=== PATIENT | female | born 1985 | race Caucasian/White ===

== ENCOUNTER → 2018-05-04 09:41 | Outpatient (CLI) | payer MEDICAID, SELFPAY ==
--- NOTE | 2018-05-04 09:47 | XR_ITS ---
XR ankle RT min 3V HISTORY: Pain following injury ITS.REASON: RT ANKLE INJURY ORDERING PHYSICIAN: Delisa Turner PATIENT AGE: 33 years COMPARISON: 09/14/2015 FINDINGS: There is a faint density at the tip of the lateral malleolus which may be due to an avulsion fracture. Mild soft tissue swelling noted at the lateral malleolus region. No other significant anomalies evident. IMPRESSION: Small avulsion fracture at the tip of the lateral malleolus
== END ==
PROVIDERS: PCP Nurse Practitioner Family; Visit Provider Nurse Practitioner Family
DX: S99.911A Unspecified injury of right ankle, initial encounter (principal)
CPT/HCPCS: 73610

== ENCOUNTER → 2020-05-24 10:07 | Outpatient (CLI) | payer OTHER, SELFPAY ==
--- NOTE | 2020-05-24 10:16 | US_ITS ---
PROCEDURE: US THYROID CLINICAL INDICATION: ADULT HYPOTHYROIDISM COMPARISON: No exams were available for comparison FINDINGS: Both thyroid glands are normal size and echogenicity. Right lobe: 21 millimeters x 43 mm x 32 millimeters, predominantly cystic lesion with a nodular component located within the the interpolar region measuring 21 millimeters x 31 millimeter x 19 millimeters. The left thyroid gland measures 30 millimeters x 42 mm X 17 mm and contains a hypervascular cystic/solid lesion, wider than tall well-defined borders and no microcalcifications. The isthmus measures 4.5 millimeters. IMPRESSION: Cystic right TR 1 lesion, solid left hypervascular lesion. 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 Biopsy recommended.. Dictated by: Shaan Forman 05/24/2020 12:01 Electronically signed by Shaan Forman in [place] 05/24/2020 12:01
== END ==
PROVIDERS: PCP Nurse Practitioner Family; Visit Provider Nurse Practitioner
DX: E03.9 Hypothyroidism, unspecified (principal)
CPT/HCPCS: 76536

== ENCOUNTER → 2020-07-03 10:59 | Outpatient (POV) | payer OTHER, SELFPAY | PROVIDERS: PCP Family Medicine; Visit Provider Otolaryngology | DX: Z00.00 Encounter for general adult medical examination without abnormal findings (principal) ==

== ENCOUNTER → 2020-08-07 09:35 | Outpatient (CLI) | payer OTHER, SELFPAY ==
--- NOTE | 2020-08-07 09:39 | US_ITS ---
PROCEDURE: US BIOPSY THYROID CLINICAL INDICATION: THYROID NODULE COMPARISON: US US THYROID from 05/24/2020 TECHNIQUE: Pre biopsy images performed. FNA was performed on the left of the solid nodule which was the most suspicious nodule. Following obtaining informed consent, using aseptic technique and local anesthesia with buffered lidocaine, fine-needle aspiration was performed of the nodule of interest using sonographic guidance. 3 passes were made into the nodule with a 25-gauge needle. Specimen was given to cytology. FINDINGS: CYTOLOGY: Negative for malignant cells IMPRESSION: FNA of the left thyroid dominant nodule is negative for malignant cells. The patient tolerated the procedure well without evidence of immediate complications and left the ultrasound suite in stable condition. Dictated by: Deng Marrero MD 08/08/2020 15:53 Deng Marrero MD in [place] 08/08/2020 15:53
== END ==
PROVIDERS: PCP Family Medicine; Visit Provider Otolaryngology
DX: E04.1 Nontoxic single thyroid nodule (principal)
CPT/HCPCS: 10005; 76942

== ENCOUNTER → 2020-08-20 11:36 | Outpatient (CLI) | payer OTHER, SELFPAY ==
--- NOTE | 2020-08-20 11:42 | XR_ITS ---
PROCEDURE: XR KNEE RT 3V CLINICAL INDICATION: KNEE EFFUSION, RIGHT, KNEE PAIN ACUTE COMPARISON: No exams were available for comparison FINDINGS: No fracture or dislocation. No lytic or blastic change. There is normal mineralization. The joint spaces are well-preserved. No significant degenerative/arthritic changes. No erosive changes evident. Other findings:Slight increased soft tissue density is present in the suprapatellar region suggesting small knee joint effusion. There is a faint lucency involving the distal shaft of the femur centrally at 3 mm and could be due to small cortical defect. IMPRESSION: Knee joint effusion with possible small cortical defect of the distal femur otherwise negative Dictated by: Deng Marrero MD 08/20/2020 13:13 Deng Marrero MD in [place] 08/20/2020 13:13
== END ==
PROVIDERS: PCP Nurse Practitioner; Visit Provider Nurse Practitioner
DX: M25.561 Pain in right knee (principal); M25.461 Effusion, right knee
CPT/HCPCS: 73562

== ENCOUNTER → 2020-12-07 07:37 | Outpatient (CLI) | payer OTHER, SELFPAY ==
--- NOTE | 2020-12-07 07:42 | MR_ITS ---
PROCEDURE: MR HEAD/BRAIN WO CON CLINICAL INDICATION: H/A S New onset headaches progressing COMPARISON: MR [facility] MRI-BRAIN W/WO from 04/01/2017 TECHNIQUE: Routine multiplanar multi echo sequences are performed without gadolinium enhancement. FINDINGS: No midline shift, mass effect, intracranial hemorrhage, hydrocephalus, or acute infarction is evident. The cerebellopontine angles, cerebellum, and brainstem have an unremarkable appearance. The hippocampal gyri and temporal horns are symmetric. The pituitary, optic chiasm, corpus callosum, and craniocervical junction have an unremarkable appearance. No mastoid effusion is evident. Lobular mucosal thickening involves the sphenoid sinus posteriorly on the left and anteriorly on the right also with mucosal thickening of the ethmoid sinuses. Retention cyst and or inflammatory thickening is considered. Mucous retention cyst involves the right maxillary sinus inferiorly. IMPRESSION: 1. No acute intracranial findings. 2. Paranasal sinus disease. Dictated by: Deng Marrero MD 12/08/2020 09:30 Deng Marrero MD in [place] 12/08/2020 09:30
== END ==
PROVIDERS: PCP Nurse Practitioner; Visit Provider Nurse Practitioner Family
DX: R51.9 Headache, unspecified (principal)
CPT/HCPCS: 70551

== ENCOUNTER 2023-03-03 18:55 | Emergency (ER) | payer OTHER, SELFPAY ==
[2023-03-03 18:57] VITALS: BP 123/79; PULSE 94; RESP 17; TEMP 36.8; O2SAT 97; BMI 25.9
--- NOTE | 2023-03-03 19:07 | HMH.EDGENADL ---
Discharge Plan Disposition Patient Disposition: Home, Self-Care Condition: Good Chief Complaint: Abdominal Pain Prescriptions Prescriptions: No Action trazodone 100 mg tablet 100 mg PO ONCE montelukast [Singulair] 10 mg tablet 10 mg PO QPM cetirizine [Zyrtec] 10 mg capsule 10 mg PO ONCE levothyroxine 25 mcg capsule 25 mcg PO ONCE Referrals Follow up/Referrals: Arely Delgado APRN [Primary Care Provider] - See instructions Clinical Impressions Clinical Impression: Esophageal obstruction due to food impaction Instructions Patient Instructions: DI for Acute Abdominal Pain, DI for Esophageal Dysphagia Print Language Print Language: Lao Discharge ED Provider: Tony Swift General Adult HPI General Chief complaint: Abdominal Pain Stated complaint: FB LODGE IN THROAT Time Seen by Provider: 03/03/23 19:41 History of Present Illness HPI narrative: Patient presents to the emergency department with abdominal pain and dysphagia. The patient states that she has trouble swallowing and got a piece of meat stuck during breakfast. She states that she is having trouble swallowing and is unable to tolerate liquids at this time. She states that she has had 2 scopes in the past which showed normal scopes but continues to have difficulty with swallowing. Related Data Home Medications Medication Instructions Recorded Confirmed cetirizine 10 mg capsule (Zyrtec) 10 mg PO ONCE 05/11/18 levothyroxine 25 mcg capsule 25 mcg PO ONCE 05/11/18 montelukast 10 mg tablet 10 mg PO QPM 05/11/18 (Singulair) trazodone 100 mg tablet 100 mg PO ONCE 05/11/18 Allergies Allergy/AdvReac Type Severity Reaction Status Date / Time No Known Allergies Allergy Unverified 05/11/18 15:56 [facility] Disclaimer: The information contained in this section may have been updated after the patient was seen, as this information can be updated by other users. Social History Smoking Status: Never smoker alcohol intake: never current occupational status: unemployed Travel in the last 8 weeks: None ROS Obtained: Yes All systems reviewed & no additional complaints except as documented Gastrointestinal Gastrointestingal: Reports other (Dysphagia, vomiting) Physical Exam General General appearance: alert and in no apparent distress Head Head exam: atraumatic and normocephalic Eye Eye exam: Present normal appearance, PERRL and EOMI Respiratory Respiratory exam: Present normal lung sounds bilaterally Cardiovascular Cardiovascular exam: Present regular rate, normal rhythm and normal heart sounds Abdominal Exam Abdominal exam: Present soft and other (No significant abdominal tenderness. No guarding. No rebound. Normal bowel sounds.) Extremities Exam Extremities exam: Present normal inspection and full ROM Neurological Exam Neurological exam: Present alert and oriented X3 Psychiatric Psychiatric exam: Present normal affect and normal mood Medical Decision Making Medical Records Medical records reviewed: Yes I reviewed the patient's medical records. Ramiro Inquiry Pt receiving controlled substance: No Vital Signs: 03/03/23 18:57 Temperature 98.2 F Temperature Source Oral Pulse Rate [Left] 94 H Respiratory Rate 17 Blood Pressure [Right Arm] 123/79 Blood Pressure Mean [Right Arm] 93 Blood Pressure Source [Right Arm] Automatic Cuff Blood Pressure Position [Right Arm] Sitting 02 Sat by Pulse Oximetry 97 Oxygen Delivery Method Room Air Orders (Tests/Meds): ED MEDICATIONS Discontinued Medications Generic Name Dose Route Start Last Admin Trade Name Freq PRN Reason Stop Dose Admin Belladonna Alkaloids 60 ml 03/03/23 19:06 03/03/23 19:13 Belladonna Alkaloids 60 Ml Ml PO 03/03/23 19:07 60 ml ONCE ONE Administration Glucagon 1 mg 03/03/23 19:06 03/03/23 19:13 Glucagon 1 Mg/Ml Vial IV 03/03/23 19:07 1
[2023-03-03 19:48] VITALS: BP 133/69; PULSE 72; RESP 17; TEMP 36.6; O2SAT 97
== END 2023-03-03 19:50 | disposition home or self-care (01) ==
PROVIDERS: Emergency Provider Emergency Medicine; PCP Nurse Practitioner
DX: K22.2 Esophageal obstruction (principal); T18.128A Food in esophagus causing other injury, initial encounter
CPT/HCPCS: 96374; 99283; 99284; J1610

== ENCOUNTER → 2023-06-30 15:11 | Outpatient (CLI) | payer OTHER, SELFPAY ==
--- NOTE | 2023-06-30 15:16 | XR_ITS ---
FINAL REPORT CLINICAL HISTORY: INJURY, ACUTE PAIN FINDINGS: RIGHT SHOULDER SERIES Three views of the right shoulder were obtained. There is no acute fracture or dislocation. The joint spaces are preserved. There is no soft tissue abnormality. IMPRESSION: No acute abnormality. Reviewed, Interpreted and Dictated by Keyon Beltran III, MD Transcribed by Driss Wise Authenticated and [facility]
== END ==
PROVIDERS: PCP Nurse Practitioner Family; Visit Provider Nurse Practitioner Family
DX: M25.511 Pain in right shoulder (principal); M25.611 Stiffness of right shoulder, not elsewhere classified; S49.91XA Unspecified injury of right shoulder and upper arm, initial encounter
CPT/HCPCS: 73030

== ENCOUNTER → 2023-07-13 13:18 | Outpatient (CLI) | payer OTHER, SELFPAY ==
--- NOTE | 2023-07-13 13:57 | MR_ITS ---
FINAL REPORT CLINICAL HISTORY: ACUTE PAIN OF RIGHT SHOULDER. PAIN WHEN RAISING ARM. WEAKNESS IN ARM. COMPARISON: None FINDINGS: Multiplanar MR imaging of the right shoulder was performed without contrast. There is moderate motion present slightly obscuring detail. Supraspinatus tendinosis is present. There is an intrasubstance tear of greater than 50% of the thickness of the supraspinatus tendon. There is mild degenerative change of the acromioclavicular joint. There is a small amount of fluid in the subacromial subdeltoid bursa. The glenoid labrum is obscured by motion. The long head of the biceps tendon is intact. A moderate glenohumeral joint effusion is seen. There is no evidence of fracture or dislocation. The musculature is intact. There is no evidence of soft tissue mass. IMPRESSION: Supraspinatus tendinosis with an intrasubstance tear greater than 50% of the thickness of the tendon. Labrum difficult to visualize secondary to motion. Mild acromioclavicular degenerative change with a small amount of fluid in the subacromial subdeltoid bursa, and a moderate glenohumeral joint effusion. Reviewed, Interpreted and Dictated by Keyon Beltran III, MD Transcribed by Josephine Quiroga Authenticated and [facility]
== END ==
PROVIDERS: PCP Nurse Practitioner Family; Visit Provider Nurse Practitioner Family
DX: M25.511 Pain in right shoulder (principal)
CPT/HCPCS: 73221

== ENCOUNTER 2023-07-26 05:19 | Emergency (ER) | payer OTHER, SELFPAY ==
[2023-07-26] VITALS (14 sets, daily range): BP systolic 97–150; BP diastolic 57–78; PULSE 41–58; RESP 13–20; TEMP 36.6; O2SAT 97–100; BMI 24.9
--- NOTE | 2023-07-26 05:37 | PC.NURSE ---
Dr. Way at
--- NOTE | 2023-07-26 05:41 | CT_ITS ---
PROCEDURE INFORMATION: Exam: CT Abdomen And Pelvis With Contrast Exam date and time: 07/26/2023 6:31 AM Age: 38 years old Clinical indication: Abdominal pain; Epigastric; Additional info: Epigastric/ruq abd pain, vomiting TECHNIQUE: Imaging protocol: Computed tomography of the abdomen and pelvis with contrast. Radiation optimization: All CT scans at this facility use at least one of these dose optimization techniques: automated exposure control; mA and/or kV adjustment per patient size (includes targeted exams where dose is matched to clinical indication); or iterative reconstruction. Contrast material: ISOVUE; Contrast volume: 75 ml; Contrast route: IV; REPORTING DATA: Count of CT and Cardiac NM exams in prior 12 months: This patient has received 0 known CTs and 0 known cardiac nuclear medicine studies in the 12 months prior to the current study. COMPARISON: No relevant prior studies available. FINDINGS: Liver: Normal. No mass. Gallbladder and bile ducts: The gallbladder is distended but no stones are seen. Questionable small amount of pericholecystic fluid. Pancreas: Normal. No ductal dilation. Spleen: Normal. No splenomegaly. Adrenal glands: Normal. No mass. Kidneys and ureters: Normal. No hydronephrosis. Stomach and bowel: Unremarkable. No obstruction. No mucosal thickening. Appendix: No evidence of appendicitis. Intraperitoneal space: Unremarkable. No free air. No significant fluid collection. Vasculature: Unremarkable. No abdominal aortic aneurysm. Lymph nodes: Unremarkable. No enlarged lymph nodes. Urinary bladder: Unremarkable as visualized. Reproductive: Uterus is retroflexed. Bones/joints: Prior thoracolumbar spine surgery. Soft tissues: Unremarkable. IMPRESSION: Hydropic gallbladder, no obvious stones are identified but a small amount of likely pericholecystic fluid is noted, consider right upper quadrant ultrasound for further evaluation.
--- NOTE | 2023-07-26 05:51 | ECG_ITS ---
APPROVED REPORT Exam: Resting ECG HR:46 bpm ECG Measurements Heart Rate 46 AXES NJ 167 P 64 QRSd 97 QRS 79 QT 487 T 70 QTc 447 Conclusion SINUS BRADYCARDIA POSSIBLE RIGHT VENTRICULAR CONDUCTION DELAY [RSR (QR) IN V1/V2] MODERATE ST DEPRESSION [0.05+ mV ST DEPRESSION] ABNORMAL ECG UNCONFIRMED REPORT Electronically signed by : Kurtis Pool MD 07/28/2023 17:25:13
--- NOTE | 2023-07-26 05:52 | HMH.EDGENADL ---
Discharge Plan Disposition Patient Disposition: Home, Self-Care Prescriptions Prescriptions: New potassium chloride 20 mEq tablet extended release 20 meq PO QID 3 Days Qty: 12 0RF ondansetron 4 mg tablet,disintegrating 4 mg PO Q6H PRN (Reason: nausea and vomiting) 5 Days Qty: 20 0RF No Action trazodone 100 mg tablet 100 mg PO ONCE montelukast [Singulair] 10 mg tablet 10 mg PO QPM cetirizine [Zyrtec] 10 mg capsule 10 mg PO ONCE levothyroxine 25 mcg capsule 25 mcg PO ONCE Referrals Follow up/Referrals: Delisa Turner APRN [Primary Care Provider] - See instructions Rafael Miranda MD [Staff Physician] - See instructions Activity Restrictions/Add. Instructions Additional Instructions/Restrictions: Your CT scan did not show any acute abnormalities but she did have a dilated gallbladder and some mild right upper quadrant tenderness. Your bedside ultrasound did not demonstrate any pericholecystic fluid or fluid surrounding the gallbladder and your exam improved significantly. Therefore we did not believe that your gallbladder needs to be emergently taken out however we recommend you follow-up with general surgeon to discuss an elective intervention if your symptoms continue. You have been given nausea medication and you had significant hypokalemia which is a low potassium secondary to nausea and vomiting. We discussed admission versus outpatient management and we opted to treat your potassium with oral supplementation. To ensure that you do not become hyperkalemic to essential that you have your potassium levels monitored by your primary care doctor. I would recommend you call first thing Thursday to get your potassium levels rechecked as you are replacing her potassium. Return with worsening symptoms or other concerns. Clinical Impressions Clinical Impression: Nausea and vomiting, Acute hypokalemia, Dilated gallbladder, Abdominal pain, epigastric Instructions Patient Instructions: DI for Acute Abdominal Pain Discharge ED Provider: Gopi Way General Adult HPI <Gopi Way MD - Last Filed: 07/26/23 23:32> General Chief complaint: Abdominal Pain Stated complaint: Vomiting,stomach pain Time Seen by Provider: 07/26/23 05:34 Mode of Arrival: Ambulatory Source of Information: Patient Limitations: No Limitations Description of Symptoms (Recalled from ER Triage Doc. by RN): Patient reports pain in upper gastric region that started around 1 am followed by 2 episodes of vomiting. Denies fever at this time. History of Present Illness HPI narrative: 38-year-old female history of prior esophageal stenosis status post stenting presents with acute onset epigastric abdominal pain with vomiting. Patient reports that she was in her normal state of health yesterday, awoke at 1 AM with severe epigastric abdominal pain and vomiting. Improved at home. Patient reports nothing like this has happened before. No history of abdominal surgery in the past, no history of pancreatitis. Patient is not a drinker. No recent fever or illness. Related Data Home Medications Medication Instructions Recorded Confirmed cetirizine 10 mg capsule (Zyrtec) 10 mg PO ONCE 05/11/18 levothyroxine 25 mcg capsule 25 mcg PO ONCE 05/11/18 montelukast 10 mg tablet 10 mg PO QPM 05/11/18 (Singulair) trazodone 100 mg tablet 100 mg PO ONCE 05/11/18 Previous Rx's Medication Instructions Recorded ondansetron 4 mg disintegrating 4 mg PO Q6H PRN nausea and 07/26/23 tablet vomiting 5 days #20 tabs potassium chloride 20 mEq 20 meq PO QID 3 days #12 tabs 07/26/23 tablet,extended release Allergies Allergy/AdvReac Type Severity Reaction Status Date / Time No Known Allergies Allergy Unverified 05/11/18 15:56 [facility] <Gopi Way MD - Last Filed: 07/26/23 23:32> [facility] Disclaimer: The information contained in this section may have been updated after the patient was seen, as this information can be update
[2023-07-26 05:56] LABS: Lactic Acid 1.4 mmol/L (0.7-2.1)
[2023-07-26 05:59] LABS: Basophils # 0.1 K/mm3 (0-0.2); Basophils % 0.6 % (0.1-2.0); Eosinophils # 0.5 K/mm3 (0.0-0.4); Eosinophils % 4.3 % (0.1-12.0); Hematocrit 41.9 % (37.0-47.0); Hemoglobin 14.2 g/dL (12.2-16.2); Lymphocytes % 17.7 % (10-50); Mean Corpuscular HGB Conc 33.8 g/dL (31.8-35.4); Mean Corpuscular Hemoglobin 30.1 pg (27.0-31.2); Mean Platelet Volume 9.9 fl (7.4-10.4); Monocytes # 0.5 K/mm3 (0.1-1.0); Monocytes % 4.3 % (1.7-9.3); Neutrophils # 8.2 K/mm3 (1.8-7.8); Neutrophils % 73.1 % (37.0-80.0); Platelet Count 279 K/mm3 (142-424); Red Blood Count 4.71 M/mm3 (4.20-5.40); Red Cell Distribution Width 13.2 % (11.5-17.5); White Blood Count 11.2 K/mm3 (4.8-10.8)
[2023-07-26 06:00] LABS: HCG Qualitative, Serum Negative (Negative)
[2023-07-26 06:06] LABS: Alanine Aminotransferase 54 U/L (12-78); Albumin/Globulin Ratio 1.3 (1.1-1.8); Alkaline Phosphatase 60 U/L (38-126); Anion Gap 12.8 mEq/L (5-15); Aspartate Amino Transferase 33 U/L (14-36); Bilirubin,Total 0.4 mg/dl (0.2-1.3); Blood Urea Nitrogen 11 mg/dl (7-17); Calcium 9.9 mg/dl (8.4-10.2); Carbon Dioxide 25 mmol/L (22.0-30.0); Chloride 106 mmol/L (98-107); Creatinine Clearance Estimated 112 mL/min (50-200); Estimated Glomerular Filt Rate 80 ml/min (>60); GFR (African American) 97 ML/MIN (>60); Globulin 3.2 g/dL (1.3-3.2); Glucose 174 mg/dl (74-100); Lipase 213 U/L (23-300); Sodium 141 mmol/L (136-145); Total Protein,Serum 7.2 g/dl (6.3-8.2)
[2023-07-26 06:07] LABS: Potassium 2.8 mmoL/L (3.5-5.1)
--- NOTE | 2023-07-26 06:08 | PC.NURSE ---
Critical lab K+ 2.[address]
[2023-07-26 06:13] LABS: Troponin I < 0.01 ng/ml (0.00-0.034)
--- NOTE | 2023-07-26 06:13 | PC.NURSE ---
Pt gone to RAD via wheelchair
[2023-07-26 06:41] LABS: Potassium 2.6 mmoL/L (3.5-5.1)
--- NOTE | 2023-07-26 06:41 | PC.NURSE ---
Reported critical potassium of 2.6 to
[2023-07-26 07:00] LABS: Magnesium 1.9 mg/dl (1.6-2.3)
--- NOTE | 2023-07-26 08:05 | PC.NURSE ---
pt resting in bed, visitor at Bs, call button in reach
== END 2023-07-26 10:20 | disposition home or self-care (01) ==
PROVIDERS: Emergency Provider Emergency Medicine; PCP Nurse Practitioner Family
DX: R10.13 Epigastric pain (principal); K82.8 Other specified diseases of gallbladder; E87.6 Hypokalemia; R11.2 Nausea with vomiting, unspecified; R00.1 Bradycardia, unspecified
CPT/HCPCS: 74177; 80053; 83605; 83690; 83735; 84132; 84484; 84703; 85025; 93005; 96361; 96365; 96366; 96375; 99291; J2405; J3475; Q9967

== ENCOUNTER → 2023-07-28 10:32 | Outpatient (CLI) | payer OTHER, SELFPAY ==
[2023-07-29 09:11] LABS: Alanine Aminotransferase 61 U/L (12-78); Albumin Level 4.6 g/dl (3.5-5.0); Albumin/Globulin Ratio 1.4 (1.1-1.8); Alkaline Phosphatase 55 U/L (38-126); Anion Gap 18.5 mEq/L (5-15); Aspartate Amino Transferase 43 U/L (14-36); Bilirubin,Total 0.5 mg/dl (0.2-1.3); Blood Urea Nitrogen 7 mg/dl (7-17); Calcium 9.9 mg/dl (8.4-10.2); Carbon Dioxide 28 mmol/L (22.0-30.0); Chloride 102 mmol/L (98-107); Estimated Glomerular Filt Rate 70 ml/min (>60); GFR (African American) 85 ML/MIN (>60); Globulin 3.3 g/dL (1.3-3.2); Potassium 3.5 mmoL/L (3.5-5.1); Sodium 145 mmol/L (136-145); Total Protein,Serum 7.9 g/dl (6.3-8.2)
[2023-07-29 09:29] LABS: Glucose 70 mg/dl (74-100)
== END ==
PROVIDERS: PCP Nurse Practitioner Family; Visit Provider Nurse Practitioner Family
DX: E87.6 Hypokalemia (principal)
CPT/HCPCS: 80053

== ENCOUNTER → 2023-07-31 10:26 | Outpatient (CLI) | payer OTHER, SELFPAY ==
[2023-07-31 13:38] LABS: Potassium 3.1 mmoL/L (3.5-5.1)
== END ==
PROVIDERS: Nurse Practitioner Family; PCP Nurse Practitioner Family; Visit Provider Nurse Practitioner Family
DX: E87.6 Hypokalemia (principal)
CPT/HCPCS: 36415; 84132

== ENCOUNTER → 2023-08-11 23:15 | Outpatient (CLI) | payer OTHER, SELFPAY ==
[2023-08-11 17:13] LABS: Potassium 4.1 mmoL/L (3.5-5.1)
== END ==
PROVIDERS: PCP Nurse Practitioner Family; Visit Provider Nurse Practitioner Family
DX: E87.6 Hypokalemia (principal)
CPT/HCPCS: 36415; 84132

== ENCOUNTER → 2023-08-17 08:05 | Outpatient (CLI) | payer OTHER, SELFPAY ==
--- NOTE | 2023-08-17 08:05 | IR_ITS ---
FINAL REPORT CLINICAL HISTORY: Rt shoulder pain 30 SEC FLUORO TIME 60.37 DAP FINDINGS: RIGHT SHOULDER INJECTION FOR MRI ARTHROGRAM Attending radiologist: Dr. Young. Physician Hand Umbrella Tipper: SHIRA Bowman HISTORY: Right shoulderpain. PROCEDURE: After informed consent was obtained, a time-out was performed. Utilizing local anesthesia and sterile technique, with direct fluoroscopic guidance, access to the joint was obtained . A small amount of contrast was injected to confirm needle tip location. Additional gadolinium contrast was injected. IMPRESSION: Status post injection for MRI arthrogram without immediate complication. Please see MRI report. Fluoro time: 30 seconds Total DAP: 60.37 uGycm2. 2 radiographs were obtained. Films reviewed , interpreted and dictated by Dr. Young. Transcribed by Juno Bowman PA-C. Reviewed, Interpreted and Dictated by Jason Young MD Transcribed by FCO Frank Authenticated and [facility]
--- NOTE | 2023-08-17 08:05 | MR_ITS ---
FINAL REPORT CLINICAL HISTORY: Rt shoulder pain. limited rom. abnormal mri COMPARISON: MRI right shoulder without 07/13/2023 FINDINGS: Multi planar MR imaging of the right shoulder was performed after the intra-articular injection of dilute gadolinium contrast. Contrast is seen throughout the shoulder joint space. There is no evidence of full-thickness tendon tear. There is no abnormal communication between the joint space and the subacromial/subdeltoid bursa. The posterior labrum is unremarkable. The anterior labrum appears somewhat irregular and disc great linear tear is not seen. The biceps tendon appears intact. The subscapularis tendon is intact. The acromioclavicular joint is intact. IMPRESSION: No evidence of full-thickness tendon tear. Irregular appearance of the anterior labrum may represent chronic sequela of prior labral injury. Reviewed, Interpreted and Dictated by Jason Young MD Transcribed by Nelly Gregg Authenticated and [facility]
== END ==
PROVIDERS: PCP Nurse Practitioner Family; Visit Provider Orthopaedic Surgery
DX: M75.111 Incomplete rotator cuff tear or rupture of right shoulder, not specified as traumatic (principal)
CPT/HCPCS: 73040; 73222; A9576; Q9967

== ENCOUNTER → 2023-09-28 17:04 | Outpatient (CLI) | payer OTHER, SELFPAY ==
[2023-09-28 18:06] LABS: Potassium 3.5 mmoL/L (3.5-5.1)
[2023-09-28 18:40] LABS: Thyroid Stimulating Hormone 1.41 uIU/mL (0.465-4.68)
== END ==
PROVIDERS: PCP Nurse Practitioner Family; Visit Provider Nurse Practitioner Family
DX: E87.6 Hypokalemia (principal); E03.9 Hypothyroidism, unspecified
CPT/HCPCS: 84132; 84443

== ENCOUNTER 2024-02-16 12:30 | Outpatient (CLI) | payer OTHER, SELFPAY ==
[2024-02-16 13:51] LABS: Alanine Aminotransferase 14 U/L (12-78); Alkaline Phosphatase 50 U/L (38-126); Aspartate Amino Transferase 23 U/L (14-36); Bilirubin,Total 0.2 mg/dl (0.2-1.3); Blood Urea Nitrogen 13 mg/dl (7-17); Carbon Dioxide 24 mmol/L (22.0-30.0); Estimated Glomerular Filt Rate 94 ml/min (>60); GFR (African American) 113 ML/MIN (>60)
[2024-02-16 14:16] LABS: Thyroid Stimulating Hormone 2.57 uIU/mL (0.465-4.68)
[2024-02-16 14:42] LABS: Albumin/Globulin Ratio 1.4 (1.1-1.8); Anion Gap 14.8 mEq/L (5-15); Globulin 3.2 g/dL (1.3-3.2); Sodium 140 mmol/L (136-145)
[2024-02-16 15:38] LABS: Chloride 106 mmol/L (98-107)
[2024-02-16 15:39] LABS: Potassium 3.9 mmoL/L (3.5-5.1)
[2024-02-16 15:41] LABS: Albumin Level 4.4 g/dl (3.5-5.0); Total Protein,Serum 7.6 g/dl (6.3-8.2)
[2024-02-16 15:42] LABS: Calcium 9.7 mg/dl (8.4-10.2); Glucose 85 mg/dl (74-100)
[2024-02-16 17:11] LABS: Free T4 (Free Thyroxine) 1.47 ng/dl (0.78-2.19)
[2024-02-17 08:40] LABS: Triiodothyronine (T3) Free 3.1 pg/mL (2.0-4.4)
== END 2024-02-16 23:59 ==
LOC: LAB.DROPOF 12:32
PROVIDERS: PCP Nurse Practitioner Family; Visit Provider Nurse Practitioner Family
DX: E03.9 Hypothyroidism, unspecified (principal); E04.9 Nontoxic goiter, unspecified; E87.6 Hypokalemia
CPT/HCPCS: 80053; 84439; 84443; 84481

== ENCOUNTER 2024-02-24 09:37 | Outpatient (CLI) | payer OTHER, SELFPAY ==
--- NOTE | 2024-02-24 09:38 | US_ITS ---
FINAL REPORT CLINICAL HISTORY: goiter COMPARISON: 05/24/2020 FINDINGS: THYROID ULTRASOUND: The right lobe of the thyroid gland measures 5.6 x 2.3 x 4.1 cm in size, somewhat enlarged. There is a dominant mass in the right lobe of the thyroid measuring 4.5 x 2.2 cm in size, larger than seen on the prior exam. This mass is hypoechoic, likely solid, a TI-RADS category 4 nodule. The left lobe of the thyroid measures 4.5 x 1.25 x 1.6 cm in size. There is a nodule in the left lobe of the thyroid measuring 14 mm in size, hyperechoic, solid, a TI-RADS category 3 nodule. The isthmus of the thyroid is normal in appearance and measures 4 mm in thickness. IMPRESSION: Dominant nodule in the right lobe of the thyroid, 4.5 x 2.2 cm in size. This is a TI-RADS category 4 nodule, and biopsy is recommended for further evaluation. Reviewed, Interpreted and Dictated by Jason Young MD Transcribed by Josephine Quiroga Authenticated and [facility][1]
== END 2024-02-24 23:59 ==
LOC: RAD 09:38
PROVIDERS: PCP Nurse Practitioner Family; Visit Provider Nurse Practitioner Family
DX: E04.9 Nontoxic goiter, unspecified (principal); E03.9 Hypothyroidism, unspecified
CPT/HCPCS: 76536

== ENCOUNTER 2024-04-07 13:24 | Outpatient (POV) | payer OTHER, SELFPAY ==
[2024-04-07 13:44] VITALS: BP 120/80; PULSE 80; RESP 18; O2SAT 98; BMI 24.5
--- NOTE | 2024-04-07 14:02 | EXP.PAIN.OV ---
HPI Data of Consult Patient: new to practice Consult date: 04/07/24 Requesting Physician: Ann-Marie Chang APRN Primary Care Provider: Delisa Turner APRN Consult Narrative Reason for consult: Right shoulder pain History of present illness: Ms. Steiner is a 38 year old female who presents today as a new patient. She is a referral from [facility] office. Today she rates her pain a 8 out of 10. Patient states her pain is all in her right shoulder related to an injury she suffered about a year ago. 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 She states that she was helping feed 2 horses and they basically pulled from both sides causing a popping sensation. She states that she has had imaging done and that she did go see Dr. Chang here at [facility] who gave her a shoulder injection however it only lasted for as long as the numbing medication was present. She states that it just felt heavy overall and did not really provide significant improvement. Patient states the pain now is a constant sharp sensation that is worse with certain positions or increased range of motion. She does state the pain interferes with her ability perform activities of daily living such as cooking and cleaning. Patient has tried [id number] Tylenol and ibuprofen along with heat and ice and topicals with minimal relief. She states that she was recently prescribed gabapentin and hydrocodone from her PCP and that does help however she relies a lot on it at bedtime. Patient does also state that the heat sometimes will help additionally. Patient denies any prior physical therapy. Patient has not had any surgery. She states that she did go for second opinion to [facility] and that they basically said there was nothing wrong with her shoulder and that she just needed to rest it for a little while. Her Ramiro has been reviewed and is appropriate. CC: Ann-Marie Chang APRN [facility] Disclaimer: The information contained in this section may have been updated after the patient was seen, as this information can be updated by other users. Medical History History of esophageal dilatation Hypothyroidism Surgical History History of back surgery Family History Mother Pre-diabetes Social History Smoking Status: Never smoker alcohol intake: never current occupational status: other Travel in the last 8 weeks: None Review of Systems Review of Systems Review of systems:: pertinent systems reviewed and negative unless documented below Review of systems (narrative): Review of Systems: General: No recent weight changes, no fever, no sleep disturbances Respiratory: No cough, no shortness of air, no recurring pulmonary infections Cardiovascular/peripheral vascular: No chest pain, no palpitations, no edema, no shortness of breath Gastrointestinal: No new onset incontinence, normal bowel movements reported Genitourinary: No new onset incontinence Musculoskeletal: Right shoulder pain Psychiatric: [Normal mood/affect] Neurological: [Denies weakness in extremities], [denies balance issues] Meds Home Medications and Allergies Home Medications Medication Instructions Recorded Confirmed Type levocetirizine 5 mg tablet 5 mg PO DAILY 30 days #30 tabs 02/16/24 03/29/24 Rx levothyroxine 50 mcg tablet 50 mcg PO DAILY 30 days #30 tabs 02/16/24 03/29/24 Rx montelukast 10 mg tablet 10 mg PO QPM 30 days #30 tabs 02/16/24 03/29/24 Rx (Singulair) mupirocin 2 % topical ointment 1 applic topical TID 14 days #50 02/16/24 03/29/24 Rx grams potassium chloride 10 mEq 20 meq (2 x 10 mEq) PO TID 30 days 02/16/24 03/29/24 Rx capsule,extended release #180 caps trazodone 100 mg tablet 100 mg PO HS 30 days #30 tabs 02/16/24 03/29/24 Rx gabapentin 300 mg capsule 300 mg PO BID #60 caps 03/29/24 03/29/24 Rx hydrocodone 5 mg-acetaminophen 325 1 tab PO Q4-6H PRN pain 7 days #30 03/29/24 03/29/24 Rx mg tablet tabs meloxicam 7.5 mg tablet 7.5 mg PO BID 03/29/24 03/29/24 History New Prescriptions to Start Prescriptions: Allergies Allergy/AdvReac Type Severity Reaction Status Date / Time No Known Allergies Allergy Verified 03/29/24 10:02 Objective Narrative: Physical Exam: General: Alert and oriented x3, no acute distress, pleasant and cooperative Lungs: Respirations even and unlabored, symmetrical chest expansion Eyes: PERRL Musculoskeletal: Flexion and extension of right shoulder somewhat guarded secondary to pain Neurological: Speech clear, no gross sensory deficit Additional findings Additional findings: FINDINGS: Multi planar MR imaging of the right shoulder was performed after the intra-articular injection of dilute gadolinium contrast. Contrast is seen throughout the shoulder joint space. There is no evidence of full-thickness tendon tear. There is no abnormal communication between the joint space and the subacromial/subdeltoid bursa. The posterior labrum is unremarkable. The anterior labrum appears somewhat irregular and disc great linear tear is not seen. The biceps tendon appears intact. The subscapularis tendon is intact. The acromioclavicular joint is intact. IMPRESSION: No evidence of full-thickness tendon tear. Irregular appearance of the anterior labrum may represent chronic sequela of prior labral injury. Reviewed, Interpreted and Dictated by Jason Young MD Transcribed by Nelly Gregg Authenticated and [facility] Assessment and Plan *Assessment and plan (1) Right shoulder pain: Status: Acute Qualifiers: Chronicity: chronic Qualified Code(s): M25.511 - Pain in right shoulder; G89.29 - Other chronic pain Category: Medical Code(s): M25.511 - Pain in right shoulder Plan Patient continues to experience significant pain in her right shoulder with limited range of motion. I have discussed with the patient that it may be beneficial to try a suprascapular nerve block. Risk and benefits were discussed with patient and she states that she is kind of limited, that she has to share her vehicle and so making different travel arrangements can be harder. I will also order the patient a compounded cream. I have discussed that she may benefit from physical therapy. We will follow-up with her at future visits regarding this. Patient will return to clinic in 1 month for reevaluation of symptoms and plan of care. Patient has been instructed to contact the clinic with any concerns before the next appointment. Dr. Saunders has reviewed this note and agrees with this plan of care. This note was dictated using voice recognition software and make contain errors or omissions.
== END 2024-04-07 23:59 | disposition home or self-care (01) ==
LOC: SC.PAIN 13:25
PROVIDERS: PCP Nurse Practitioner Family; Visit Provider Nurse Practitioner Family
DX: M25.511 Pain in right shoulder (principal); G89.29 Other chronic pain
CPT/HCPCS: 99202; G0463

== ENCOUNTER 2024-09-12 16:26 | Outpatient (CLI) | payer OTHER, SELFPAY ==
[2024-09-12 17:11] LABS: Potassium 3.9 mmoL/L (3.5-5.1)
[2024-09-13 03:32] LABS: Thyroid Stimulating Hormone 1.48 uIU/mL (0.465-4.68)
== END 2024-09-12 23:59 | disposition home or self-care (01) ==
LOC: LAB.DROPOF 16:26
PROVIDERS: PCP Nurse Practitioner Family; Visit Provider Nurse Practitioner Family
DX: E03.9 Hypothyroidism, unspecified (principal); E87.6 Hypokalemia
CPT/HCPCS: 84132; 84443

== ENCOUNTER 2025-03-14 15:26 | Outpatient (CLI) | payer MEDICAID, SELFPAY ==
--- OUTSIDE RECORDS SUMMARY | 2025-03-14 15:28 | XMS_ITS | Clinical Summary ---
Author Organization [facility] Address [address] [place] [address] Phone Care Team Providers Care Technology Administrator Name Role Phone Maritza ZAVALETA, Dax Meraz Unavailable [phone] Reason for Visit and Chief Complaint Physician Specified Problems Includes: Problems addressed during this encounter and other active Problems Current Visit Onset Date Resolved Date Provider Janak owen Status Joint Pain, Localized in the Right Shoulder 03/18/2024 Dax Salas MD Active Last Documented On 9:53AM ; [facility], [facility] Plan of Treatment No Plan of Treatment Recorded Assessments Includes: Assessments from this encounter Findings HISTORY OF PRESENT ILLNESS - Last Documented On 03/26/2024 11:09AM ; [facility] The patient is a 38-year-old presenting for evaluation of her right shoulder. - Last Documented On 03/26/2024 11:09AM ; [facility], [facility] The patient has been experiencing symptoms in her right shoulder for approximately 8 to 9 months. She recounts an acute injury to her shoulder, which was pulled by a horse while attempting to run away. She reported a popping sensation in the shoulder at the time of the incident, but does not perceive any dislocation or instability events. Since the injury, she has undergone several MRIs and received an injection 6 to 7 months ago. However, she has not sought any specific treatment thus far. The pain has progressively worsened and is now impacting her daily quality of life and ability to work. The pain is primarily located along the anterior and lateral aspects of the shoulder, and she reports a decrease in range of motion and strength. - Last Documented On 03/26/2024 11:09AM ; [facility] PHYSICAL EXAM - Last Documented On 03/26/2024 11:09AM ; [facility] The patient is a well-appearing female in no acute distress. - Last Documented On 03/26/2024 11:09AM ; [facility], [facility] Upon evaluation of the right shoulder, the skin appears to be intact. There is somewhat diffuse tenderness to palpation, most pronounced along the anterior aspect of the shoulder rotator interval area. The patient has forward elevation to 145 degrees, external rotation to 25 degrees, internal rotation to the level of L5. These are reduced compared to the contralateral side, which has 170 degrees of forward elevation, external rotation to 40, internal rotation to the level of T10. The patient's strength is 4/5 forward elevation, 5 minus/5 external rotation and internal rotation. Strength testing does appear to be limited by pain. The patient has pain with impingement sign, cross body abduction test, but basically activity towards the extreme of motion gives her the pain. - Last Documented On 03/26/2024 11:09AM ; [facility] RESULTS - Last Documented On 03/26/2024 11:09AM ; [facility] Imaging - Last Documented On 03/26/2024 11:09AM ; [facility] MRI of the shoulder shows no evidence of rotator cuff tearing, some edema within the supraspinatus consistent with tendinitis, and no evidence of Hill-Sachs injury or significant humeral head edema. A small area of irregularity of the anterior labrum is possible, but this does not correspond with an acute injury, likely the biceps tendon sitting within the bicipital occipital groove. - Last Documented On 03/26/2024 11:09AM ; [facility] ASSESSMENT AND PLAN - Last Documented On 03/26/2024 11:09AM ; [facility] 1. Persistent right shoulder pain. - Last Documented On 03/26/2024 11:09AM ; [facility] The patient's symptoms now align with an adhesive capsulitis-type presentation, characterized by acute pain and a loss of motion. We deliberated on the fact that her images do not reveal any significant structural abnormalities, and there is no indication of significant rotator cuff tearing or other surgical findings. An intra-articular cortisone injection was recommended, which we will proceed with today. Additionally, physical therapy was suggested to enhance motion and strengthening. 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 It is likely that she needs to reduce her overall activity level to mitigate inflammation. - Last Documented On 03/26/2024 11:09AM ; [facility] Follow-up - Last Documented On 03/26/2024 11:09AM ; [facility] The patient is scheduled for a follow-up visit in approximately 3 months to evaluate her progress. - Last Documented On 03/26/2024 11:09AM ; [facility] PROCEDURE - Last Documented On 03/26/2024 11:09AM ; [facility] After verbal consent was obtained, the posterior aspect of the shoulder was sterilely prepped. 8 cc of Marcaine and 40 mg of Kenalog were then sterilely injected intra-articularly into the right shoulder. The injection site was dressed. The patient tolerated the procedure without issues. - Last Documented On 03/26/2024 11:09AM ; [facility] Medical Equipment - Implanted Devices Includes: Current Devices No Medical Equipment Recorded Medications Includes: Medications discussed during this encounter and other current Medications New / Renewed during this visit Dax Salas MD on 03/18/2024 Meloxicam 7.5 MG Oral Tablet Provider: Dax Salas MD 30 day supply: 60 tablet, 0 refills Diagnosis: twice a day Pharmacy: [facility] [address] [place], [id number] - Last Documented On 4 10:52AM By Elizabeth Teixeira [facility] Protonix 40 MG Oral Packet Provider: Arpit Salas MD 30 day supply: 30 packet, 1 refills Diagnosis: once a day Pharmacy: [facility] [address], [address] - Last Documented On 4 10:52AM By Elizabeth Teixeira [facility] Medications Administered Includes: Administered Medications from this encounter No Administered Medications Recorded Results Includes: Results discussed during this encounter No Results Recorded For Specified Dates History of Present Illness Includes: History of Present Illness from this encounter GINA Steiner is a 38 year old female. - Allergy list reviewed - Problem list reviewed - Medication list reviewed - Previous history of new onset pain Injury is not work related or an automotive accident - No previous treatment. Social History Description Last Updated Tobacco non-user 03/18/2024 Last Documented On 4 11:09AM ; [facility] No caffeine use 03/18/2024 Last Documented On 4 11:09AM ; [facility] No recent change in diet 03/18/2024 Last Documented On 4 11:09AM ; [facility] Not a current smoker. 03/18/2024 Last Documented On 4 11:09AM ; [facility] Not exercising regularly 03/18/2024 Last Documented On 4 11:09AM ; [facility] Not using alcohol 03/18/2024 Last Documented On 4 11:09AM ; [facility] Not using drugs 03/18/2024 Last Documented On 4 11:09AM ; [facility] Smoking Status Unknown Procedures and Surgical History Includes: Procedures from this encounter Procedures Code Diagnosis Performing Provider Service Location Service Date DRAIN/INJECT, JOINT/BURSA (RIGHT) Pain in right shoulder Dax Salas MD [facility] 03/18/2024 Last Documented On 4 3:47PM ; [facility] Triamcinolone/Kenalog, 10mg per cc [id number] Pain in right shoulder Dax Salas MD [facility] 03/18/2024 Last Documented On 4 3:47PM ; [facility] use of tobacco assessment performed 1000F Last Documented On 4 9:55AM ; [facility] review of medications documented 1160F Last Documented On 4 9:55AM ; [facility] an X-ray was performed [id number] Last Documented On 4 9:53AM ; [facility] Medical History Includes: Medical History addressed during this encounter Description Last Updated Past medical and surgical history non-co ntributory 03/18/2024 Last Documented On 4 11:09AM ; [facility] Family History Includes: Family History addressed during this encounter Description Last Updated No significant family history 03/18/2024 Last Documented On 4 11:09AM ; [facility] Review of Systems Includes: Review of Systems from this encounter Systemic: Not feeling tired, no recent weight loss, and no recent weight gain. Head: No headache and no sinus pain. Eyes: No vision problems, no Cataracts, no Glasses/Contacts, and no Glaucoma. Otolaryngeal: No hearing loss and no tinnitus. Cardiovascular: No chest pain or discomfort, no palpitations, no Hypertension, and no High Cholesterol. Pulmonary: No daytime asthma symptoms and no chronic cough. No wheezing. Gastrointestinal: No heartburn and no abdominal pain. No Indigestion, no Acid Reflux, no Peptic Ulcer, no GI Stomach Bleed, and no Ulcers. Endocrine: No hot flashes, no muscle weakness, no Diabetes, no Hypothyroid, and no Hyperthyroid. Hematologic: No easy bleeding, no tendency for easy bruising, and no Anemia. Musculoskeletal: No Arthritis and no lower back pain. No soft tissue swelling and no localized joint pain. Neurological: No dizziness, no convulsions, and no numbness. Psychological: No anxiety, no emotional lability, no depression, and no insomnia. Not crying for no reason. Skin: No dry skin. No Ulcers, no Scars, and no rash. Allergic and Immunologic: No complaint of seasonal allergic reaction. Mental Status Includes: Mental Status from this encounter Description No anxiety Functional Status Includes: Functional Status from this encounter No Functional Status Recorded Physical Exam Includes: Physical Exam from this encounter No Physical Exam Recorded Allergies Includes: Active Allergies No Known Allergies Encounters Encounter Provider Location Date Check-In Time Check-Out Time Diagnosis Physician Specified Dax Salas MD [facility] 03/18/20 24 8:50AM 10:45AM Insurance Includes: Active Insurance Policies Plan Name Member ID Group # Subscriber Relationship Effect lisa Dates 1 - [employer] [facility] [id number] Olga Steiner Self Clinical Notes Includes: Clinical Notes from this encounter * Progress note Date Encounter Last Documented by 03/18/2024 Physician Specified Last documen justin on 03/26/2024; 11:09 AM, Dax Salas MD; [facility] Active Problems & Conditions - Joint Pain, Localized in the Right Shoulder Referred Here Referred by. History of Present Illness Olga Steiner is a 38 year old female. - Allergy list reviewed - Problem list reviewed - Medication list reviewed - Previous history of new onset pain Injury is not work related or an automotive accident - No previous treatment. Past Medical/Surgical History Past medical and surgical history non-contributory. Social History Not a current smoker. Current diet: No recent change in diet. Caffeine use: No caffeine use. Tobacco use: Tobacco non-user. Alcohol: Not using alcohol. Drug Use: Not using drugs. Habits: Not exercising regularly. Allergies - No Known Allergies Family History No significant family history Review Of Systems Systemic: Not feeling tired, no recent weight loss, and no recent weight gain. Head: No headache and no sinus pain. Eyes: No vision problems, no Cataracts, no Glasses/Contacts, and no Glaucoma. Otolaryngeal: No hearing loss and no tinnitus. Cardiovascular: No chest pain or discomfort, no palpitations, no Hypertension, and no High Cholesterol. Pulmonary: No daytime asthma symptoms and no chronic cough. No wheezing. Gastrointestinal: No heartburn and no abdominal pain. No Indigestion, no Acid Reflux, no Peptic Ulcer, no GI Stomach Bleed, and no Ulcers. Endocrine: No hot flashes, no muscle weakness, no Diabetes, no Hypothyroid, and no Hyperthyroid. Hematologic: No easy bleeding, no tendency for easy bruising, and no Anemia. Musculoskeletal: No Arthritis and no lower back pain. No soft tissue swelling and no localized joint pain. Neurological: No dizziness, no convulsions, and no numbness. Psychological: No anxiety, no emotional lability, no depression, and no insomnia. Not crying for no reason. Skin: No dry skin. No Ulcers, no Scars, and no rash. Allergic and Immunologic: No complaint of seasonal allergic reaction. Assessment HISTORY OF PRESENT ILLNESS The patient is a 38-year-old presenting for evaluation of her right shoulder. The patient has been experiencing symptoms in her right shoulder for approximately 8 to 9 months. She recounts an acute injury to her shoulder, which was pulled by a horse while attempting to run away. She reported a popping sensation in the shoulder at the time of the incident, but does not perceive any dislocation or instability events. Since the injury, she has undergone several MRIs and received an injection 6 to 7 months ago. However, she has not sought any specific treatment thus far. The pain has progressively worsened and is now impacting her daily quality of life and ability to work. The pain is primarily located along the anterior and lateral aspects of the shoulder, and she reports a decrease in range of motion and strength. PHYSICAL EXAM The patient is a well-appearing female in no acute distress. Upon evaluation of the right shoulder, the skin appears to be intact. There is somewhat diffuse tenderness to palpation, most pronounced along the anterior aspect of the shoulder rotator interval area. The patient has forward elevation to 145 degrees, external rotation to 25 degrees, internal rotation to the level of L5. These are reduced compared to the contralateral side, which has 170 degrees of forward elevation, external rotation to 40, internal rotation to the level of T10. The patient's strength is 4/5 forward elevation, 5 minus/5 external rotation and internal rotation. Strength testing does appear to be limited by pain. The patient has pain with impingement sign, cross body abduction test, but basically activity towards the extreme of motion gives her the pain. RESULTS Imaging MRI of the shoulder shows no evidence of rotator cuff tearing, some edema within the supraspinatus consistent with tendinitis, and no evidence of Hill-Sachs injury or significant humeral head edema. A small area of irregularity of the anterior labrum is possible, but this does not correspond with an acute injury, likely the biceps tendon sitting within the bicipital occipital groove. ASSESSMENT AND PLAN 1. Persistent right shoulder pain. The patient's symptoms now align with an adhesive capsulitis-type presentation, characterized by acute pain and a loss of motion. We deliberated on the fact that her images do not reveal any significant structural abnormalities, and there is no indication of significant rotator cuff tearing or other surgical findings. An intra-articular cortisone injection was recommended, which we will proceed with today. Additionally, physical therapy was suggested to enhance motion and strengthening. 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 It is likely that she needs to reduce her overall activity level to mitigate inflammation. Follow-up The patient is scheduled for a follow-up visit in approximately 3 months to evaluate her progress. PROCEDURE After verbal consent was obtained, the posterior aspect of the shoulder was sterilely prepped. 8 cc of Marcaine and 40 mg of Kenalog were then sterilely injected intra-articularly into the right shoulder. The injection site was dressed. The patient tolerated the procedure without issues. Previous Tests Imaging: X-Ray: An X-ray was performed. Plan StartCited - Other Meloxicam 7.5 MG tablet twice a day, 30 days, 0 refills Protonix 40 MG packet once a day, 30 days, 1 refills EndCited Notes This dictation was done with voice recognition software and may contain errors and omissions. Practice Management Use of tobacco assessment performed Review of medications documented.
--- OUTSIDE RECORDS SUMMARY | 2025-03-14 15:28 | XMS_ITS ---
Care Plan - [facility], [facility] Created on: March 14, 2025 Olga Steiner : 1985 Sex: Female Author Organization [facility], [facility] Address [address] [place] [address] Phone Care Team Providers Care Polishing Machine Operator Helper Name Role Phone Maritza ZAVALETA, Dax Meraz Unavailable [phone]
--- OUTSIDE RECORDS SUMMARY | 2025-03-14 15:28 | XMS_ITS ---
Author Organization [facility] , [facility] Address [address] [place] [address] Phone Care Team Providers Care Telephone Appointment Clerk Name Role Phone Maritza ZAVALETA, Dax Meraz Unavailable [phone] Problems Includes: Active, inactive, and resolved Problems All Visits Onset Date Resolved Date Provider Condition S tatus Joint Pain, Localized in the Right Shoulder 03/18/2024 Dax Salas MD Active Last Documented On 4 9:53AM ; [facility] Plan of Treatment No Plan of Treatment Recorded Assessments Includes: Assessments for all patient encounters No Assessments Recorded Medical Equipment - Implanted Devices Includes: Current and historical Devices No Medical Equipment Recorded Medications Includes: Current and historical Medications Past Medications on file Meloxicam 7.5 MG Oral Tablet 03/18/2024 - 04/17/2024 P rovider: Dax Salas MD Diagnosis: twice a day Last Documented On 4 10:52AM By Elizabeth Carrizales ; [facility] Protonix 40 MG Oral Packet 03/18/2024 - 05/17/2024 Pro vider: Dax Salas MD Diagnosis: once a day Last Documented On 4 10:52AM By Elizabeth Carrizales ; [facility] Medications Administered Includes: Administered Medications in patient's chart No Administered Medications Recorded Results Includes: Results from 03/14/2024 through 03/14/2025 No Results Recorded For Specified Dates History of Present Illness History of Present Illness not supported for this document type No History of Present Illness Recorded Social History Description Last Updated Tobacco non-user 03/18/2024 Last Documented On 4 11:09AM ; [facility] No caffeine use 03/18/2024 Last Documented On 4 11:09AM ; [facility] No recent change in diet 03/18/2024 Last Documented On 4 11:09AM ; [facility] Not a current smoker. 03/18/2024 Last Documented On 4 11:09AM ; [facility] Not exercising regularly 03/18/2024 Last Documented On 4 11:09AM ; [facility] Not using alcohol 03/18/2024 Last Documented On 4 11:09AM ; [facility] Not using drugs 03/18/2024 Last Documented On 4 11:09AM ; [facility] Smoking Status Unknown Procedures and Surgical History Includes: Procedures from 03/14/2024 through 03/14/2025 Procedures Code Diagnosis Performing Provider Service Location Service Date DRAIN/INJECT, JOINT/BURSA (RIGHT) Pain in right shoulder Dax Salas MD [facility] 03/18/2024 Last Documented On 4 3:47PM ; [facility] Triamcinolone/Kenalog, 10mg per cc [id number] Pain in right shoulder Dax Salas MD [facility] B 03/18/2024 Last Documented On 4 3:47PM ; [facility] Medical History Includes: Medical History in patient's chart Description Last Updated Past medical and surgical history non-co ntributory 03/18/2024 Last Documented On 4 11:09AM ; [facility] Family History Includes: Family History in patient's chart Description Last Updated No significant family history 03/18/2024 Last Documented On 4 11:09AM ; [facility] Review of Systems Review of Systems not supported for this document type No Review of Systems Recorded Mental Status Description No anxiety Functional Status No Functional Status Recorded Physical Exam Physical Exam not supported for this document type No Physical Exam Recorded Allergies Includes: Active, inactive, and resolved Allergies No Known Allergies Encounters Includes: Encounters from 03/14/2024 through 03/14/2025 Encounter Provider Location Date Check-In Time Check-Out Time Diagnosis Physician Specified Dax Salas MD [facility] B 03/18/20 24 8:50AM 10:45AM Insurance Includes: Active Insurance Policies Plan Name Member ID Group # Subscriber Relationship Effect lisa Dates 1 - [employer] [facility] [id number] Olga Steiner Self Clinical Notes Includes: Signed Clinical Notes starting from 11/13/2022 * Progress note Date Encounter Last Documented by 03/18/2024 Physician Specified Last patriziaumen justin on 03/26/2024; 11:09 AM, Dax Salas MD; [facility], [facility] Active Problems & Conditions - Joint Pain, [...]
--- NOTE | 2025-03-14 16:00 | MR_ITS ---
PROCEDURE INFORMATION: Exam: MR Right Upper Extremity Joint Without and With Contrast; Shoulder Exam date and time: 03/14/2025 3:36 PM Age: 39 years old Clinical indication: Pain; Shoulder; Right; Additional info: Right shoulder pain, decreased rom TECHNIQUE: Imaging protocol: Magnetic resonance imaging of the right upper extremity without and with contrast. Exam focused on the shoulder. Contrast material: PROHANCE; Contrast volume: 14 ml; Contrast route: IV; COMPARISON: MR SHOULDER RT W CON 08/17/2023 8:28 AM FINDINGS: Bones/joints: AC joint is well aligned, with mild osteoarthritic spurring and mild subarticular STIR hyperintensity in the distal clavicle consistent with mild osteoarthritic reactive change. No significant undersurface spurring or medial arch stenosis. Slight lateral acromial downsloping producing mild lateral arch stenosis anteriorly. Type 2 acromial configuration. Small volume joint effusion demonstrating T1 hyperintensity consistent with contrast administration. Articular cartilage surfaces are well-maintained. No fracture or bone contusion. Glenoid labrum: No labral tears are identified. Slight irregularity in the anterior labrum is felt to represent variant cleft or sublabral foramen. Bursae: Mild STIR hyperintensity and trace fluid in the subacromial/subdeltoid bursa consistent with mild peritendinitis/bursitis. Supraspinatus tendon: Supraspinatus tendon demonstrates intrasubstance T2 isointensity in a similar distribution as seen on 08/17/2023 centered 13 mm from the humeral attachment suggesting that this is largely chronic tendinosis or remnant changes of remote tear. There are thin T2 hyperintense elements in the anterior tendon distal to this suspicious for thin elements of interstitial partial-thickness tear. No high-grade partial-thickness or full-thickness tear is identified currently. Infraspinatus tendon: Infraspinatus tendon is intact. Subscapularis tendon: Subscapularis is intact. Teres minor tendon: Teres minor is intact. Tendon of biceps brachii: Biceps long head tendon intra-articular segment demonstrates interstitial PD hyperintensity and T1 hyperintensity suggesting short segment interstitial tear which does not involve the biceps labral anchor or extra-articular segment. Normal course is maintained in the bicipital groove. Glenohumeral ligaments: The inferior axillary recess is fairly small, and question mild thickening and PD/stir hyperintensity of the anterior band of the inferior glenohumeral ligament near its humeral attachment zone. This could represent changes of adhesive capsulitis, or possibly a chronic HAGL lesion if there is history of dislocation although no other imaging findings suggestive of prior dislocation and chronic instability are evident. Soft tissues: Normal musculature. Lymph nodes: No axillary adenopathy. IMPRESSION: 1. Chronic degenerative tendinosis versus changes of remote tear in the supraspinatus tendon midsubstance similar to 08/17/2023, with suspected thin superimposed elements of partial-thickness interstitial tear in the distal tendon insertional zone which may be acute. 2. Mild peritendinitis/bursitis of the subacromial/subdeltoid bursa. 3. Mild lateral arch stenosis anteriorly secondary to mild lateral acromial downsloping. 4. Mild thickening and signal alteration in the anterior band of the inferior glenohumeral ligament near its humeral attachment zone, possibly changes of adhesive capsulitis. Remote HAGL lesion might produce this appearance if there is history of dislocation, although there are no secondary imaging changes to support prior dislocation. 5. Thin partial-thickness interstitial tear of the biceps long head tendon intra-articular segment. Biceps labral anchor intact.
[2025-03-14] MEDS: GADOTERIDOL INJ 20ML SYRINGE 14 ML IV (16:44)
[2025-03-14] MEDS: SODIUM CHLORIDE 0.9% 10ML SYR (RAD ONLY) 10 ML IV (16:44)
== END 2025-03-14 23:59 | disposition home or self-care (01) ==
LOC: RAD 15:27
PROVIDERS: PCP Nurse Practitioner Family; Visit Provider Nurse Practitioner Family
DX: M25.511 Pain in right shoulder (principal); M75.111 Incomplete rotator cuff tear or rupture of right shoulder, not specified as traumatic; M25.611 Stiffness of right shoulder, not elsewhere classified; G89.29 Other chronic pain
CPT/HCPCS: 73223; A9576

== ENCOUNTER 2025-04-03 13:22 | Outpatient (CLI) | payer MEDICAID, SELFPAY ==
--- NOTE | 2025-04-03 14:02 | MM_ITS ---
PROCEDURE INFORMATION: Exam: Bilateral Diagnostic Breast Tomosynthesis Exam date and time: 04/03/2025 2:23 PM Age: 39 years old Clinical indication: Left breast palpable lump; patient is unsure of the area of palpable concern. TECHNIQUE: Imaging protocol: Bilateral Diagnostic tomosynthesis and 2D mammography including computer-aided detection (CAD) when performed. Unilateral or bilateral exam. COMPARISON: No relevant prior studies available. FINDINGS: MAMMOGRAPHY: Breast composition: There are scattered areas of fibroglandular density. Breast mammogram findings: No stellate mass, architectural distortion, or suspicious microcalcifications to suggest malignancy. No skin thickening or axillary adenopathy. IMPRESSION: 1. No mammographic evidence of malignancy. If there is a clinically persistent palpable lump, further evaluation with a breast ultrasound would be recommended. 2. Further evaluation of a palpable abnormality should be based on clinical grounds regardless of radiographic findings or lack thereof. ASSESSMENT: BI-RADS Category 0: Incomplete- Need Additional Imaging Evaluation.
--- NOTE | 2025-04-03 14:02 | XR_ITS ---
FINAL REPORT TECHNIQUE: Bone densitometry calculations of the lumbar spine and left hip were obtained. CLINICAL HISTORY: SCREENING FINDINGS: Using the right hip, the bone mineral density of the femoral neck is 0.734 g/cm2, corresponding to T-score of -1.0 and a Z score of -0.8. This is within the range of osteopenia. Using the left hip, the bone mineral density of the femoral neck is 0.800 g/cm2, corresponding to a T-score of -1.2 and a Z-score of -1.0. This is within the range of osteopenia. Using the left forearm, the bone mineral density of the mid is 0.560 g/cm?, corresponding to a T-score of -0.9 and a Z-score of -0.5. This is within the range of normal. NOTE: T-score: Standard deviation compared with peak bone mass of young adult mean. *Following the recommendations of the International Society of Bone densitometry, classification of hip BMD is based on the lower of two T-scores; total hip or femoral neck. IMPRESSION: 1. Bone mineral density of the left forearm within the range of normal. 2. Bone mineral density of the bilateral femoral necks within the range of osteopenia. Reviewed, Interpreted and Dictated by Paula Salas MD Transcribed by Josephine Quiroga Authenticated and [facility]
--- NOTE | 2025-04-03 14:39 | XR_ITS ---
FINAL REPORT CLINICAL HISTORY: Right shoulder pain COMPARISON: None FINDINGS: 2 views of the right shoulder were obtained. There is no fracture or dislocation. The joint space is preserved. Soft tissues are unremarkable. IMPRESSION: No acute osseous abnormality of the right shoulder. Reviewed, Interpreted and Dictated by Paula Salas MD Transcribed by Josephine Quiroga Authenticated and [facility]
== END 2025-04-03 23:59 | disposition home or self-care (01) ==
PROVIDERS: PCP Nurse Practitioner Family; Visit Provider Nurse Practitioner Family
DX: M75.51 Bursitis of right shoulder (principal); M85.89 Other specified disorders of bone density and structure, multiple sites; N63.20 Unspecified lump in the left breast, unspecified quadrant
CPT/HCPCS: 73030; 77062; 77066; 77080; G0279

== ENCOUNTER 2025-04-26 14:00 | Outpatient (RCR) | payer MEDICAID, SELFPAY | END 2025-04-28 23:59 | disposition home or self-care (01) | LOC: OT 14:00 | PROVIDERS: PCP Nurse Practitioner Family; Visit Provider Physician Assistant Surgical | DX: M75.41 Impingement syndrome of right shoulder (principal); M75.51 Bursitis of right shoulder; M75.01 Adhesive capsulitis of right shoulder | CPT/HCPCS: 97166; 97530 ==

== ENCOUNTER 2025-05-11 15:00 | Outpatient (RCR) | payer MEDICAID, SELFPAY | END 2025-05-11 23:59 | disposition home or self-care (01) | LOC: OT 15:00 | PROVIDERS: PCP Nurse Practitioner Family; Visit Provider Physician Assistant Surgical | DX: M75.41 Impingement syndrome of right shoulder (principal); M75.51 Bursitis of right shoulder; M75.01 Adhesive capsulitis of right shoulder | CPT/HCPCS: 97110; 97140 ==

== ENCOUNTER 2025-07-03 14:08 | Outpatient (CLI) | payer MEDICAID, SELFPAY ==
[2025-07-03 19:38] LABS: Alanine Aminotransferase 17 U/L (12-78); Albumin Level 4.7 g/dl (3.5-5.0); Albumin/Globulin Ratio 1.5 (1.1-1.8); Alkaline Phosphatase 66 U/L (38-126); Anion Gap 14.0 mEq/L (5-15); Aspartate Amino Transferase 24 U/L (14-36); Bilirubin,Total 0.4 mg/dl (0.2-1.3); Blood Urea Nitrogen 9 mg/dl (7-17); Calcium 9.9 mg/dl (8.4-10.2); Carbon Dioxide 26 mmol/L (22.0-30.0); Chloride 106 mmol/L (98-107); Creatinine,Serum 0.60 mg/dl (0.52-1.04); Estimated Glomerular Filt Rate 111 ml/min (>60); GFR (African American) 134 ML/MIN (>60); Globulin 3.1 g/dL (1.3-3.2); Glucose 70 mg/dl (74-100); Potassium 4.0 mmoL/L (3.5-5.1); Sodium 142 mmol/L (136-145); Total Protein,Serum 7.8 g/dl (6.3-8.2)
[2025-07-03 19:52] LABS: Free T4 (Free Thyroxine) 1.38 ng/dl (0.78-2.19)
[2025-07-03 20:09] LABS: Thyroid Stimulating Hormone 5.32 uIU/mL (0.465-4.68)
--- OUTSIDE RECORDS SUMMARY | 2025-07-04 12:25 | XMS_ITS | Clinical Summary ---
Author Organization [employer] ([place], [place], [place], [place]) Address [address] [place] [address] Care Team Providers Care On Site Construction Superintendent Name Role Phone Delisa Turner APRN Primary Care Provider Allergies No known active allergies Medications levocetirizine (XYZAL) 5 MG tablet SMARTSI Tablet(s) By Mouth Every Evening 02/23/2023 Active levothyroxine (SYNTHROID, LEVOTHROID) 50 MCG tablet Take 1 tablet (50 mcg total) by mouth every morning. 01/29/2023 Active montelukast (SINGULAIR) 10 mg tablet SMARTSI Tablet(s) By Mouth Every Evening 01/22/2023 Active traZODone (DESYREL) 100 MG tablet Take 1 tablet (100 mg total) by mouth every night as needed. 02/23/2023 Active Active Problems No known active problems Social History Tobacco Use Types Packs/Day Years Used Date Smoking Tobacco: Never Smokeless Tobacco: Never Tobacco Cessation:Counseling Given: Not Answered Alcohol Use Standard Drinks/Week Comments Never 0 (1 standard drink = 0.6 oz pur e alcohol) Food Insecurity Answer Date Recorded Food run out past 12 months Not on file 11/30 Food did not last past 12 months Not on file 12/18/2023 Employment Answer Date Recorded Help finding and keeping a job Not on file 0 12/18/2023 Family and Community Support Answer Thomas e Recorded Help with Day to Day Activities Not on file 12/18/2023 Feeling Lonely or Isolated Not on file 12/18 Educational Attainment Answer Date Jeremy rded Speak language other than [place]ym[place] at home Not on file 12/18/2023 Want help with school or training Not on file 12/18/2023 Substance Use Answer Date Recorded Used prescription meds for non-medical reasons N ot on file 12/18/2023 Used illegal drugs past 12 months Not on file 12/18/2023 Comments No Sex and Gender Information Value Date Recorded Sex Assigned at Not on file Legal Sex Female 6:01 PM CDT Gender Identity Not on file Sexual Orientation Not on file Last Filed Vital Signs Vital Sign Reading Time Taken Comments Blood Pressure 100/73 03/24/2023 10:04 AM EDT Pulse 52 03/24/2023 10:04 AM EDT Temperature 36.9 C (98.4 F) 03/24/2023 7:10 AM EDT Respiratory Rate 16 03/24/2023 10:04 AM EDT Oxygen Saturation 99% 03/24/2023 10:04 AM EDT Inhaled Oxygen Concentration - - Weight 74.7 kg (164 lb 9.6 oz) 03/24/2023 7:10 A M EDT Height 170.2 cm (5' 7 ) 03/24/2023 7:10 AM EDT Body Mass Index 25.78 03/24/2023 7:10 AM EDT Plan of Treatment Health Maintenance Due Date Last Done Comments Depression Screening (12+) 1997 HIV Screening 2000 Hepatitis C Screening 2003 Pap Smear 2006 DTAP/TDAP/TD VACCINES (3 - T d or Tdap) 10/17/2023 10/17/2013, 11/12/2000 Tobacco Cessation Counseling and Screening (12+) 03/24/2024 03/24/2023 COVID-19 VACCINE ( - 2023-2 5 season) 2024 Breast Cancer Screening 2025 Influenza Vaccine (#1) 2025 Pneumococcal Vaccine: 0-49 Years Aged Out No longer eligible b ased on patient's age to complete this topic Insurance AETNA [facility] Care Teams On Site Construction Superintendent Relationship Specialty Start Date End Date Delisa Turner, JOSE [address] [address] PCP - General Nurse Practitioner 03/16/23
--- OUTSIDE RECORDS SUMMARY | 2025-07-04 12:25 | XMS_ITS | Clinical Summary ---
Author Organization [facility] Address [address] [place] [address] Care Team Providers Care Manufacturing Technology Professor Name Role Phone Delisa Turner APRN Primary Care Provider [phone] Allergies No known active allergies Medications gabapentin (Neurontin) 100 MG capsule Take 1 capsule (100 mg) by mouth 1 (one) time each day in the morning. 4 Active HYDROcodone-kalee taminophen ([place]) 5-325 MG tablet Take 1 tablet (5 mg of hydrocodone) by mouth every 6 (six) hours if needed for moderate pain or severe pain. 4 Active levocetirizine (Xyzal) 5 MG tablet Take 1 tablet (5 mg) by mouth 1 (one) time each day in the evening. 4 Active montelukast (Singulair) 10 MG tablet Take 1 tablet (10 mg) by mouth every night. 4 Active traZODone (Desyrel) 100 MG tablet Take 1 tablet (100 mg) by mouth every night. 4 Active gabapentin (Neurontin) 300 MG capsule Take 1 capsule (300 mg) by mouth 1 (one) time each day in the evening. Active calcitriol (Rocaltrol) 0.25 MCG capsule Take 1 capsule (0.25 mcg) by mouth 3 (three) times a day. 90 capsule 4 Active diclofenac (Voltaren) 50 MG EC tablet Take 1 tablet (50 mg) by mouth 3 (three) times a day if needed. 4 Active levothyroxine (Synthroid, Levoxyl) 112 MCG tablet Take 1 tablet (112 mcg) by mouth 1 (one) time each day in the morning. Take on empty stomach with water. Wait 30-60 minutes before eating or taking other medications. Wait 3-4 hours with vitamins or supplements 90 tablet 1 4 09/19/20 25 Active Active Problems Problem Noted Date Diagnosed Date Nausea and vomiting 08/08/2024 Esophageal obstruction due to food impaction 07/2024 Dilated gallbladder 08/08/2024 Acute hypokalemia 08/08/2024 Abdominal pain, epigastric 08/08/2024 Pain in joint of right shoulder 03/18/2024 Resolved Problems Problem Noted Date Diagnosed Date Resolved Date Multinodular goiter 05/03/2024 08/15/20 24 Immunizations Immunization Administration Dates Next Due Hep B, Adolescent or Pediatric 11/12/2000 Hep B, Adolescent/High Risk 07/21/1997 MMR 07/21/1997 TD (adult), 2 Lf tetanus tox oid, preservative free, adsorbed 11/12/2000 Tdap 10/17/2013 Social History Tobacco Use Types Packs/Day Years Used Date Smoking Tobacco: Never Smokeless Tobacco: Never Tobacco Cessation:Counseling Given: Not Answered Alcohol Use Standard Drinks/Week Comments Yes 0 (1 standard drink = 0.6 oz pur e alcohol) monthly PHQ-2 Answer Date Recorded Patient Health Questionnaire-2 Score 0 04/28/2024 Comments No Sex and Gender Information Value Date Recorded Sex Assigned at Female 07/25/2024 6:29 AM EDT Legal Sex Female 7:43 PM EDT Gender Identity Female 07/25/2024 6:29 AM EDT Sexual Orientation Not on file Last Filed Vital Signs Vital Sign Reading Time Taken Comments Blood Pressure 126/81 08/11/2024 12:16 PM EDT Pulse 82 08/11/2024 12:16 PM EDT Temperature 36.7 C (98 F) 08/11/2024 12:16 PM EDT Respiratory Rate 16 07/26/2024 7:32 AM EDT Oxygen Saturation 99% 08/11/2024 12:16 PM EDT Inhaled Oxygen Concentration - - Weight 70.8 kg (156 lb 1.4 oz) 08/11/2024 12:16 PM EDT Height 172.7 cm (5' 8 ) 08/11/2024 12:16 PM EDT Body Mass Index 23.73 08/11/2024 12:16 PM EDT Plan of Treatment Health Maintenance Due Date Last Done Comments [facility]-HIV Screening 1985 [facility]-Hepatitis C Screening 1985 [facility]-Infant/Child/Adol SDOH Screenings 1985 [id number] Vaccine (#1) 1990 [facility]-Varicella Vaccines (1 of 2 - 13+ 2-dose series) 1998 HPV Vaccines (1 - 3-dose series) 2000 [facility]-Hepatitis B Vaccines (3 of 3 - 3-dose series) 01/07/2001 11/12/2000, 07/21/1997 [facility]- SDOH Screenings 2003 [facility]-Adult SDOH Screenings 2003 [facility]-Pap Smear 2006 [facility]-Cervical Cancer Screening 2015 [facility]-HPV/Cotest 2015 [facility]-DTaP,Tdap,and Td Vaccines (3 - Td or Tdap) 10/17/2023 10/17/2013, 11/12/2000 [facility]-Depression Screening 04/28/2025 04/28/2024 [facility]-Influenza Vaccine (#1) 2025 [facility]-Zoster Vaccines (1 of 2) 2035 [facility]-HIB Vaccines Aged Out No longer e ligible based on patient's age to complete this topic [facility]-Hepatitis A Vaccines Aged Out No longer eligible based on patient's age to complete this topic [facility]-IPV Vaccines Aged Out No longer e ligible based on patient's age to complete this topic [facility]-Pneumococcal Vaccine: Pediatrics (0 to 5 Years) and At-Risk Patients (6 to 49 Years) Aged Out No longer eligible b ased on patient's age to complete this topic [facility]-Rotavirus Vaccines Aged Out No lo nger eligible based on patient's age to complete this topic Medical Devices Implanted Type Area Fixture Repairer Fabricator Device Identifier Shelf Expiration Date Model / Serial / Lot Rich Rich N/A: Back Insurance AETNA [facility] MEDICAID Advance Directives * Full Code (Latest Code Status on File) Date Activated Date Inactivated Comments 07/25/2024 10:35 AM 07/26/2024 11:02 AM Question Answer Comments Patient has decision-making capacity? Yes Care Teams Manufacturing Technology Professor Relationship Specialty Start Date End Date Delisa Turner APRN [address] [place] [address] PCP - General 04/28/24
--- OUTSIDE RECORDS SUMMARY | 2025-07-04 12:25 | XMS_ITS | Referral Summary ---
Author Organization [employer] ([place], [place], [place], [place]) Address [address] [place] [address] Care Team Providers Care Scarf And Anneal Operator Name Role Phone Delisa Turner APRN Primary Care Provider [phone] Allergies No known active allergies Medications levocetirizine [...] Date Jeremy rded Speak language other than Ukrainian at home Not on file 12/18/2023 Want [...] 03/24/2023 7:10 AM EDT Plan of Treatment Not on file Insurance AETNA [facility] Care Teams Scarf And Anneal Operator Relationship Specialty Start Date End Date Turner, Delisa, PIECE DYEING MACHINE TENDER [address] [phone] PCP - General Nurse Practitioner 03/16/23
[2025-07-05 10:23] LABS: Triiodothyronine (T3) Free 2.5 pg/mL (2.0-4.4)
== END 2025-07-03 23:59 | disposition home or self-care (01) ==
LOC: LAB.DROPOF 07-04 12:24
PROVIDERS: PCP Nurse Practitioner Family; Visit Provider Nurse Practitioner Family
DX: E03.9 Hypothyroidism, unspecified (principal); E87.6 Hypokalemia
CPT/HCPCS: 80053; 84439; 84443; 84481

== ENCOUNTER 2025-08-11 16:53 | Emergency (ER) | payer MEDICAID, SELFPAY ==
[2025-08-11 16:59] VITALS: BP 127/84; PULSE 66; RESP 18; TEMP 36.7; O2SAT 99; BMI 25.0
--- OUTSIDE RECORDS SUMMARY | 2025-08-11 17:22 | XMS_ITS | Referral Summary ---
Author Organization [email or web address] ([place], [place], [place], [place]) Address [address] [place] [address] Care Team Providers Care Skin Care Therapist Name Role Phone Delisa Turner APRN Primary [...] Date Jeremy rded Speak language other than Ugandan at home Not on file 12/18/2023 Want [...] of Treatment Not on file Insurance AETNA [facility] Care Teams Skin Care Therapist Relationship Specialty Start Date End Date Turner, Delisa, SENIOR BRAND MANAGER [address] [phone] PCP - General Nurse Practitioner 03/16/23
--- OUTSIDE RECORDS SUMMARY | 2025-08-11 17:22 | XMS_ITS | Clinical Summary ---
Author Organization [facility] Address [address] [place] [address] Care Team Providers Care Communications Writer Name Role Phone Delisa Turner APRN Primary Care Provider [phone] Allergies No known active allergies Medications gabapentin (Neurontin) 100 MG capsule Take 1 capsule (100 mg) by mouth 1 (one) time each day in the morning. 4 Active HYDROcodone-kalee taminophen ([place]) 5-325 MG tablet Take 1 tablet (5 [...] C Screening 1985 [facility]-Infant/Child/Adol SDOH Screenings 1985 [id number] Vaccine (#1) 1990 [facility]-Varicella Vaccines (1 of 2 - 13+ 2-dose series) 1998 [facility]-Hepatitis B Vaccines (3 of 3 - 3-dose series) 01/07/2001 11/12/2000, 07/21/1997 [facility]- SDOH Screenings 2003 [facility]-Adult SDOH Screenings 2003 [facility]-Pap Smear 2006 HPV Vaccines (1 - 3-dose SCDM series) 2012 [facility]-Cervical Cancer Screening 2015 [facility]-HPV/Cotest 2015 [facility]-DTaP,Tdap,and [...] this topic Medical Devices Implanted Type Area Labor Utilization Superintendent Device Identifier Shelf Expiration Date Model / Serial / Lot Rich Rich N/A: Back Insurance AETNA [facility] MEDICAID Advance Directives * Full Code (Latest Code Status on File) Date Activated Date Inactivated Comments 07/25/2024 10:35 AM 07/26/2024 11:02 AM Question Answer Comments Patient has decision-making capacity? Yes Care Teams Communications Writer Relationship Specialty Start Date End Date eDlisa Turner APRN [address] [place] [phone] PCP - General 04/28/24
--- OUTSIDE RECORDS SUMMARY | 2025-08-11 17:22 | XMS_ITS | Clinical Summary ---
Author Organization [employer] ([place], [place], [place], [place]) Address [address] [place] [address] Care Team Providers Care Plasma Cutting Machine Operator Name Role Phone Delisa Turner APRN [...] Date Jeremy rded Speak language other than German at home Not on file 12/18/2023 Want [...] Cessation Counseling and Screening (12+) 03/24/2024 03/24/2023 Breast Cancer Screening 2025 COVID-19 VACCINE (2023-2 5 season) 2025 Influenza Vaccine (#1) 2025 Pneumococcal Vaccine: 0-49 Years Aged Out No longer eligible b ased on patient's age to complete this topic Insurance AETNA [facility] Care Teams Plasma Cutting Machine Operator Relationship Specialty Start Date End Date Delisa Turner, JOSE [address] [address] PCP - General Nurse Practitioner 03/16/23
--- NOTE | 2025-08-11 17:24 | CT_ITS ---
PROCEDURE INFORMATION: Exam: CT Lumbar Spine Without Contrast Exam date and time: 08/11/2025 5:47 PM Age: 40 years old Clinical indication: Injury or trauma; Fall; Work related; Blunt trauma (contusions or hematomas); Injury date: 08/11/25; Injury details: PT was thrown from horse; Prior surgery; Surgery date: 6+ months; Surgery type: Prior FX to spine with rods TECHNIQUE: Imaging protocol: Computed tomography of the lumbar spine without contrast. Radiation optimization: All CT scans at this facility use at least one of these dose optimization techniques: automated exposure control; mA and/or kV adjustment per patient size (includes targeted exams where dose is matched to clinical indication); or iterative reconstruction. COMPARISON: CT ABDOMEN PELVIS W CON 07/26/2023 6:31 AM FINDINGS: Bones/joints: Parallel spinous rods and pedicular screws T12, L1, L2. Healing nondisplaced fracture of the right transverse process of L2. Broad-based disc bulge, facet hypertrophy, and ligament hypertrophy at L4/L5 consistent with spinal stenosis. . Broad-based disc bulge L5/S1 consistent with degenerative disc disease. Soft tissues: Unremarkable. IMPRESSION: 1. Parallel spinous rods and pedicular screws T12, L1, L2. 2. Healing nondisplaced fracture of the right transverse process of L2. 3. Broad-based disc bulge, facet hypertrophy, and ligament hypertrophy at L4/L5 consistent with spinal stenosis. . 4. Broad-based disc bulge L5/S1 consistent with degenerative disc disease.
[2025-08-11] MEDS: ACETAMINOPHEN 500MG TAB 1000 MG PO (17:32)
--- NOTE | 2025-08-11 17:35 | PC.NURSE ---
rounded on patient. no needs at this time. call light within reach
--- NOTE | 2025-08-11 19:12 | ED_ITS ---
<Statement entered by Nile Franklin DO - 08/12/25 16:36> I was consulted by the FIONA, and we discussed the complexity of problems being addressed. I approved the treatment and management plan for this patient's care in the emergency department, thus performing a substantive portion of the medical decision making. I also evaluated this patient. She does not report back symptoms of saddle anesthesia urinary retention, urinary cons, extremity. She does have a history of lumbar spine so I do not abundance of precaution we did perform a CT scan of the lumbar spine. This showed no acute abnormalities. On my examination the patient she has hypertonicity and pain in the muscle belly of the paraspinal musculature on the right. Given this, should no acute findings we felt that she was stable for discharge home. Nile Franklin DO Discharge Plan Disposition Patient Disposition: Home, Self-Care Prescriptions Prescriptions: New lidocaine [Lidoderm] 5 % adhesive patch,medicated 1 patch topical DAILY 7 Days Qty: 7 0RF Rx Instructions: leave on most painful area for up to 12 hrs methocarbamol 500 mg tablet 500 mg PO BID Qty: 60 0RF No Action potassium chloride 10 mEq capsule, extended release 20 meq PO TID 30 Days Qty: 180 2RF montelukast [Singulair] 10 mg tablet 10 mg PO QPM 30 Days Qty: 30 6RF levocetirizine 5 mg tablet 5 mg PO DAILY Qty: 30 5RF olopatadine [Pataday Once Daily Relief] 0.2 % drops 1 drp ophthalmic (eye) DAILY PRN (Reason: itching) Qty: 2.5 5RF azelastine 137 mcg (0.1 %) aerosol,spray 2 spray intranasal BID Qty: 30 3RF naloxone 3 mg/actuation spray,non-aerosol 3 mg intranasal .COMPLEX Qty: 2 0RF Rx Instructions: 3 mg intranasally 1 spray into 1 nostril, repeat every 2 to 3 minutes as needed.; levothyroxine [Synthroid] 125 mcg tablet 125 mcg PO DAILY Qty: 30 2RF hydrocodone-acetaminophen 7.5-325 mg tablet 1 tab PO Q6H PRN (Reason: Adhesive capsulitis of right shoulder) 7 Days Qty: 28 0RF trazodone 150 mg tablet See Rx Instructions .ROUTE .COMPLEX Qty: 30 0RF Dose Instruction: TAKE 1 TABLET BY MOUTH AT BEDTIME NIGHTLY Rx Instructions: TAKE 1 TABLET BY MOUTH AT BEDTIME NIGHTLY Referrals Follow up/Referrals: Delisa Turner APRN [Primary Care Provider, Medical] - See instructions Activity Restrictions/Add. Instructions Additional Instructions/Restrictions: You were evaluated in the emergency department today, you had a CT scan of your lower back which did not show any acute changes. This is a muscular injury. Please continue to take the muscle relaxer as directed and use the Lidoderm patches. You may also continue to use ibuprofen and Tylenol [id number] for symptomatic relief. Please follow-up with your PCP within 48 hours. Please return to the ED for worsening of condition. Clinical Impressions Clinical Impression: Back pain Instructions Patient Instructions: DI for Low Back Pain Print Language Print Language: Maori Discharge ED Provider: Nile Franklin Adult HPI General Chief complaint: Back Pain/Injury Stated complaint: AO 9-12 threw off her horse,lower back Time Seen by Provider: 08/11/25 17:19 Mode of Arrival: Ambulatory Source of Information: Patient Description of Symptoms (Recalled from ER Triage Doc. by RN): patient presents to the ED after being thrown off her horse. accident occured around 11 am today. Patient complaining of 9/10 lower right back pain. pain does not radiate down her legs. History of Present Illness HPI narrative: patient is a 40-year-old female PMHx history of chronic back pain and previous back surgery who presents to the ED for right lower back pain. Patient states she was riding her horse when she fell, got caught in the steer of and then hit the ground. Patient states she landed on her right side, is having pain in right flank area only. Patient states she did not hit her head, did not lose consciousness. She is not on blood thinners. She states she was ambulatory after the event without difficulty. Related Data Previous Rx's ?Medication ?Instructions ?Recorded potassium chloride 10 mEq 20 meq (2 x 10 mEq) PO TID 3 0 days 02/16/24 capsule,extended release #180 caps azelastine 137 mcg (0.1 %) nasal 2 spray intranasal BI D #30 mL 05/25/24 spray naloxone 3 mg/actuation nasal spray 3 mg intranasal .C OMPLEX #2 ea 10/24/24 levocetirizine 5 mg tablet 5 mg PO DAILY #30 tabs 01/30 12/24 montelukast 10 mg tablet 10 mg PO QPM 30 days #30 tab s 02/27/25 (Singulair) olopatadine 0.2 % eye drops 1 drp ophthalmic (eye) FRANSICO LY PRN 02/27/25 (Pataday Once Daily Relief) itching #2.5 mL levothyroxine 125 mcg tablet 125 mcg PO DAILY #30 tabs 07/07/25 (Synthroid) hydrocodone 7.5 mg-acetaminophen 1 tab PO Q6H PRN Adhe sive 08/02/25 325 mg tablet capsulitis of right shoulder 7 days #28 tabs trazodone 150 mg tablet See Rx Instructions .Route 0 08/04/25 .COMPLEX #30 tabs lidocaine 5 % topical patch 1 patch topical DAILY 7 da ys #7 ea 08/11/25 (Lidoderm) methocarbamol 500 mg tablet 500 mg PO BID #60 tabs 11/23 Allergies Allergy/AdvReac Type Severity Reaction Status Date / Time No Known Allergies Allergy Verified 07/28/25 08:49 [facility] Disclaimer: The information contained in this section may have been updated after the patient was seen, as this information can be updated by other users. Medical History History of esophageal dilatation Hypothyroidism Surgical History History of back surgery Family History Mother Pre-diabetes Social History Smoking Status: Never smoker alcohol intake: never current occupational status: other Travel in the last 8 weeks?: None Have you lived/traveled outside US in past 30 days?: No Contact w/someone who lives/traveled outside US past 30 days?: No Exposure to someone with infectious disease in past 14 days?: No Do you have a fever (greater than 100.4 F or 38 C)?: No Have you tested positive for COVID-19?: No Exposed to someone with COVID-19 in past 14 days?: No Do you have a sore throat?: No Do you have a cough?: No Do you have any weakness?: No Do you have any diarrhea?: No Are you experiencing any unusual bleeding?: No Do you have any muscle aches/pain?: No Do you have any abdominal pain?: No Are you experiencing loss of taste or smell?: No Other Medical History Have you received the Flu Vaccine for this season: No Have you received the Pneumonia Vaccine: No ROS Obtained: Yes Systems reviewed as appropriate & no additional complaints except as documented Physical Exam General General appearance: alert Head Head exam: atraumatic Eye Eye exam: Present PERRL and EOMI; Absent nystagmus Neck Neck exam: Present full ROM Respiratory Respiratory exam: Present normal lung sounds bilaterally Cardiovascular Cardiovascular exam: Present regular rate Abdominal Exam Abdominal exam: Present soft Extremities Exam Extremities exam: Present full ROM Back Exam Back exam: Present full ROM and CVA tenderness (R); Absent vertebral tenderness Neurological Exam Neurological exam: Present alert, oriented X3 and normal gait; Absent motor sensory deficit Skin Skin exam: Present warm and dry Medical Decision Making Medical Records Screening: Per USPSTF and CDC recommendations, given the prevalence of disease in our region, it is our hospital?s policy to screen for HIV and viral Hepatitis for all patients aged 18 and over and those with ongoing risk factors. Ramiro Inquiry Pt receiving controlled substance: No Vital Signs: 08/11/25 16:59 08/11/25 19:31 08/11/25 20:19 Temperature 98.0 F Temperature Source Temporal Artery Scan Pulse Rate 85 78 Pulse Rate [Right Radial] 66 Respiratory Rate 18 16 Blood Pressure 126/84 116/80 Blood Pressure [Right Arm] 127/84 Blood Pressure Mean [Right Arm] 98 Blood Pressure Source [Right Arm] Automatic Cuff Blood Pressure Position [Right Arm] Sitting 02 Sat by Pulse Oximetry 99 99 100 Oxygen Delivery Method Room Air Room Air Room Air 08/11/25 20:49 08/11/25 20:50 Temperature 98.9 F 98.6 F Temperature Source Oral Pulse Rate 87 84 Pulse Rate [Right Radial] Respiratory Rate 17 16 Blood Pressure 124/89 124/85 Blood Pressure [Right Arm] Blood Pressure Mean [Right Arm] Blood Pressure Source [Right Arm] Blood Pressure Position [Right Arm] 02 Sat by Pulse Oximetry Oxygen Delivery Method Room Air Room Air Orders (Tests/Meds): ED MEDICATIONS Discontinued Medications Generic Name Dose Route Start Last Admin Trade Name Freq PRN Reason Stop Dose Admin Acetaminophen 1,000 mg 08/11/25 17:24 08/11/25 17:32 Acetaminophen 500mg Tab PO 08/11/25 17:25 1,000 mg ONCE ONE Administration Lidocaine 1 each 08/11/25 19:57 08/11/25 20:03 Lidocaine 5% Transdermal Patch TD 08/11/25 19:58 1 each ONCE ONE Administration Methocarbamol 500 mg 08/11/25 19:57 08/11/25 20:03 Methocarbamol 500mg Tablet PO 08/11/25 19:58 500 mg ONCE ONE Administration ORDERS Category Date Time Status CT lumbar spine wo con Stat Cat Scan 08/11/25 17:24 Completed Medical Decision Narrative: In summary, patient is a 40-year-old female PMHx history of chronic back pain and previous back surgery who presents to the ED for right lower back pain. Patient states she was riding her horse when she fell, got caught in the steer of and then hit the ground. Patient states she landed on her right side, is having pain in right flank area only. Patient states she did not hit her head, did not lose consciousness. She is not on blood thinners. She states she was ambulatory after the event without difficulty. Denies fever, chills, bowel or bladder incontinence, saddle anesthesia, decreased ROM. Upon initial evaluation patient is alert, oriented and cooperative. She is hemodynamically stable. Her physical exam is remarkable for right paraspinal musculature tenderness, no spinal tenderness, no step-offs or deformity of the entire spine. Atraumatic head. Neuro status intact. PERRLA, no nystagmus. No pelvic pain. Differential diagnosis includes musculoskeletal pain, strain, L-spine fracture, among others. Discussed with patient we will symptomatically manage with acetaminophen and perform CT scan of the L-spine. She is agreeable to plan of care. Upon reassessment, patient states she is still having right sided lower back pain. Will administer Lidoderm patch and Robaxin. CT scan of the L-spine unremarkable for any acute fracture. Upon further reassessment by the attending, patient advised that her pain had greatly improved. Advised that this is musculoskeletal pain, sent prescription for Robaxin to the pharmacy and Lidoderm patches. Advised to follow-up with PCP within 1 week. We discussed return precautions to the ED and patient verbalized understanding. Critical Care Critical Care Time Critical Care Time: No
[2025-08-11 19:31] VITALS: BP 126/84; PULSE 85; RESP 16; O2SAT 99
[2025-08-11] MEDS: METHOCARBAMOL 500MG TABLET 500 MG PO (20:03)
[2025-08-11] MEDS: LIDOCAINE 5% TRANSDERMAL PATCH 1 EACH TD (20:03)
[2025-08-11 20:19] VITALS: BP 116/80; PULSE 78; O2SAT 100
[2025-08-11 20:49] VITALS: BP 124/89; PULSE 87; RESP 17; TEMP 37.2
[2025-08-11 20:50] VITALS: BP 124/85; PULSE 84; RESP 16; TEMP 37; O2SAT 98
== END 2025-08-11 20:50 | disposition home or self-care (01) ==
PROVIDERS: Emergency Provider Student in an Organized Health Care Education/Training Program; PCP Nurse Practitioner Family
DX: M54.9 Dorsalgia, unspecified (principal)
CPT/HCPCS: 72131; 99284

== ENCOUNTER 2025-09-13 10:44 | Outpatient (CLI) | payer MEDICAID, SELFPAY ==
--- NOTE | 2025-09-13 10:49 | XR_ITS ---
FINAL REPORT CLINICAL HISTORY: preoperative testing for shoulder surgery hx of asthma FINDINGS: PA and lateral views of the chest are obtained. There is no prior exam for comparison. The cardiac and mediastinal silhouettes are within normal limits. The lungs are clear. There is no pleural effusion, pneumothorax, or acute osseous abnormality. IMPRESSION: No radiographic evidence of acute cardiac or pulmonary disease. Reviewed, Interpreted and Dictated by Paula Salas MD Transcribed by Nelly Gregg Authenticated and [facility] [place] [place]
--- OUTSIDE RECORDS SUMMARY | 2025-09-13 10:51 | XMS_ITS | Clinical Summary ---
Author Organization [facility] Address [address] [place] [address] Care Team Providers Care Manager Progressive Care Name Role Phone Delisa Turner APRN Primary Care Provider [phone]- [phone] Allergies No known active allergies Medications gabapentin (Neurontin) 100 MG capsule Take 1 capsule (100 mg) by mouth 1 (one) time each day in the morning. 4 Active HYDROcodone-kalee taminophen ([place]) 5-325 MG tablet Take 1 tablet (5 [...] Active Problems Problem Noted Date Diagnosed Date Esophageal obstruction due to food impaction 07/2024 Dilated gallbladder 08/08/2024 Acute hypokalemia 08/08/2024 Abdominal pain, epigastric 08/08/2024 Pain in joint of right shoulder 03/18/2024 Resolved Problems Problem Noted Date Diagnosed Date Resolved Date Nausea and vomiting 08/08/2024 08/20/20 25 Multinodular goiter 05/03/2024 08/15/20 24 Immunizations Immunization [...] [facility]-HIV Screening 1985 [facility]-Hepatitis C Screening 1985 [facility]-/Child/Adol SDOH Screenings 1985 [id number] Vaccine (#1) 1990 [facility]-Varicella Vaccines (1 of [...] this topic Medical Devices Implanted Type Area Certified Corporate Travel Executive Device Identifier Shelf Expiration Date Model / Serial / Lot Rich Rich N/A: Back Insurance AETNA [facility] MEDICAID Advance Directives * Full Code (Latest Code Status on File) Date Activated Date Inactivated Comments 07/25/2024 10:35 AM 07/26/2024 11:02 AM Question Answer Comments Patient has decision-making capacity? Yes Care Teams Manager Progressive Care Relationship Specialty Start Date End Date Delisa Turner APRN [address] [place] [address] PCP - General 04/28/24
--- OUTSIDE RECORDS SUMMARY | 2025-09-13 10:51 | XMS_ITS | Clinical Summary ---
Author Organization [employer] ([place], [place], [place], [place]) Address [address] [place] [address] Care Team Providers Care Buckle Strap Drum Operator Name Role Phone Delisa Turner APRN [...] Date Jeremy rded Speak language other than Romansh at home Not on file 12/18/2023 Want [...] age to complete this topic Insurance AETNA [facility] Care Teams Buckle Strap Drum Operator Relationship Specialty Start Date End Date Delisa Turner, JOSE [address] [address] PCP - General Nurse Practitioner 03/16/23
--- OUTSIDE RECORDS SUMMARY | 2025-09-13 10:51 | XMS_ITS | Referral Summary ---
Author Organization [facility] ([place], [place], [place], [place]) Address [address] [place] [address] Care Team Providers Care Speech Language Pathology Assistant Name Role Phone Delisa Turner APRN Primary [...] Date Jeremy rded Speak language other than Sami at home Not on file 12/18/2023 Want [...] of Treatment Not on file Insurance AETNA [facility] Care Teams Speech Language Pathology Assistant Relationship Specialty Start Date End Date Turner, Delisa, FACILITIES OFFICER [address] [phone] PCP - General Nurse Practitioner 03/16/23
[2025-09-13 11:19] LABS: Microscopic, Urine URINE MICROSCOPIC (MICROSCOPIC)
[2025-09-13 12:01] LABS: Hematocrit 43.8 % (37.0-47.0); Hemoglobin 14.7 g/dL (12.2-16.2); Immature Granulocytes % 0.3 %; Mean Corpuscular HGB Conc 33.6 g/dL (31.8-35.4); Mean Corpuscular Hemoglobin 29.6 pg (27.0-31.2); Mean Corpuscular Volume 88.1 fl (81-99); Nucleated Red Blood Cells % 0 %; Platelet Count 301 K/mm3 (142-424); Red Blood Count 4.97 M/mm3 (4.20-5.40); Red Cell Distribution Width-SD 43.6 fL; White Blood Count 9.2 K/mm3 (4.8-10.8)
[2025-09-13 12:16] LABS: Activated Partial Thrombo Time 25.8 seconds (22.8-30.6); INR 1.06 (0.9-1.1); Prothrombin Time 11.7 seconds (10.1-12.5)
[2025-09-13 12:32] LABS: Chloride 102 mmol/L (98-107)
[2025-09-13 12:33] LABS: Albumin Level 4.4 g/dl (3.5-5.0); Potassium 3.1 mmoL/L (3.5-5.1); Sodium 142 mmol/L (136-145)
[2025-09-13 12:35] LABS: Alanine Aminotransferase 15 U/L (12-78); Aspartate Amino Transferase 19 U/L (14-36); Blood Urea Nitrogen 11 mg/dl (7-17); Creatinine,Serum 0.60 mg/dl (0.52-1.04); Estimated Glomerular Filt Rate 111 ml/min (>60); GFR (African American) 134 ML/MIN (>60)
[2025-09-13 12:36] LABS: Albumin/Globulin Ratio 1.3 (1.1-1.8); Alkaline Phosphatase 75 U/L (38-126); Anion Gap 15.1 mEq/L (5-15); Bilirubin,Total 0.6 mg/dl (0.2-1.3); Calcium 9.0 mg/dl (8.4-10.2); Carbon Dioxide 28 mmol/L (22.0-30.0); Globulin 3.5 g/dL (1.3-3.2); Glucose 94 mg/dl (74-100); HCG Qualitative, Serum Negative (Negative); Total Protein,Serum 7.9 g/dl (6.3-8.2)
[2025-09-13 13:19] LABS: Hemoglobin A1C 4.8 % (4.0-6.0)
[2025-09-13 14:06] LABS: Amphetamine/Metha Screen,Urine Negative ng/ml (<1000)
[2025-09-13 14:07] LABS: Barbiturates Screen,Urine Negative ng/ml (<200); Benzodiazepines Screen,Urine Negative ng/ml (<200)
[2025-09-13 14:09] LABS: Methadone Screen,Urine Negative ng/ml (<300)
[2025-09-13 14:10] LABS: Opiate Screen,Urine Negative ng/ml (<300); Phencyclidine Screen,Urine Negative ng/ml (<25)
[2025-09-13 15:10] LABS: Bilirubin,Urine Negative (Negative); Color,Urine YELLOW (Yellow); Glucose,Urine (UA) Negative (Negative); Ketones,Urine Negative (Negative); Leukocyte Esterase,Urine Negative (Negative); PH,Urine 7.0 (5.0-8.5); Protein,Urine Negative (Negative); Specific Gravity, Urine 1.010 (1.005-1.030); Urobilinogen,Urine 0.2 EU/dl (0.2)
[2025-09-13 15:33] LABS: Bacteria,Urine Trace /lpf; Squamous Epithelial Cell,Urine Occasional #/hpf (0-5); WBC,Urine Occasional #/hpf (0-3)
== END 2025-09-13 23:59 | disposition home or self-care (01) ==
LOC: LAB 10:46
PROVIDERS: PCP Nurse Practitioner Family; Visit Provider Nurse Practitioner Family
DX: Z01.811 Encounter for preprocedural respiratory examination (principal); Z01.812 Encounter for preprocedural laboratory examination; M25.811 Other specified joint disorders, right shoulder
CPT/HCPCS: 36415; 71046; 80053; 80307; 81001; 83036; 84703; 85025; 85610; 85730; 87081

== ENCOUNTER 2025-10-02 17:09 | Outpatient (CLI) | payer MEDICAID, SELFPAY ==
--- OUTSIDE RECORDS SUMMARY | 2025-10-02 17:10 | XMS_ITS | Clinical Summary ---
Author Organization [facility] Address [address] [place] [address] Care Team Providers Care Special Education Para Professional Name Role Phone Delisa Turner APRN Primary Care Provider [phone]- [phone] Allergies No known active allergies Medications gabapentin (Neurontin) 100 MG capsule Take 1 capsule (100 mg) by mouth 1 (one) time each day in the morning. 4 Active HYDROcodone-kalee taminophen ([place]) 5-325 MG tablet Take 1 tablet (5 [...] with vitamins or supplements 90 tablet 1 Active Active Problems Problem Noted Date Diagnosed [...] or Pediatric 11/12/2000 Hep B, Adolescent/High Risk Infant 07/21/1997 MMR 07/21/1997 TD (adult), 2 Lf [...] C Screening 1985 [facility]-/Child/Adol SDOH Screenings 1985 [facility]-Varicella Vaccines (1 of 2 - 13+ 2-dose series) 1998 [facility]-Hepatitis B Vaccines (3 of 3 - 3-dose series) 01/07/2001 11/12/2000, 07/21/1997 [facility]- SDOH Screenings 2003 [facility]-Adult SDOH Screenings 2003 [facility]-Pap Smear 2006 HPV Vaccines (1 - 3-dose SCDM series) 2012 [facility]-Cervical Cancer Screening 2015 [facility]-HPV/Cotest 2015 [facility]-DTaP,Tdap,and Td Vaccines (3 - Td or Tdap) 10/17/2023 10/17/2013, 11/12/2000 [facility]-Depression Screening 04/28/2025 04/28/2024 [id number] Vaccine ( - season) 2025 [facility]-Influenza Vaccine (#1) 2025 [facility]-Zoster Vaccines (1 [...] this topic Medical Devices Implanted Type Area Security Developer Device Identifier Shelf Expiration Date Model / Serial / Lot Irch Rich N/A: Back Insurance AETNA [facility] MEDICAID Advance Directives * Full Code (Latest Code Status on File) Date Activated Date Inactivated Comments 07/25/2024 10:35 AM 07/26/2024 11:02 AM Question Answer Comments Patient has decision-making capacity? Yes Care Teams Special Education Para Professional Relationship Specialty Start Date End Date Delisa Turner APRN [address] [place] [address] PCP - General 04/28/24
--- OUTSIDE RECORDS SUMMARY | 2025-10-02 17:10 | XMS_ITS | Referral Summary ---
Author Organization [facility] ([place], [place], [place], [place], [place]) Address [address] [place] [address] Care Team Providers Care Career Professional Name Role Phone Delisa Turner APRN [...] Date Jeremy rded Speak language other than Bulgarian at home Not on file 12/18/2023 Want [...] of Treatment Not on file Insurance AETNA [facility] Care Teams Career Professional Relationship Specialty Start Date End Date Delisa Turner, POLISHING PAD MOUNTER [address] [phone] PCP - General Nurse Practitioner 03/16/23
--- OUTSIDE RECORDS SUMMARY | 2025-10-02 17:10 | XMS_ITS | Clinical Summary ---
Author Organization [facility] ([place], [place], [place], [place], [place]) Address [address] [place] [address] Care Team Providers Care Quantitative Research Analyst Name Role Phone Delisa Turner APRN Primary [...] Date Jeremy rded Speak language other than Greenlandic at home Not on file 12/18/2023 Want [...] 03/24/2023 Breast Cancer Screening 2025 COVID-19 VACCINE ( - 2023-2 5 season) 2025 Influenza Vaccine (#1) 2025 Pneumococcal Vaccine: 0-49 Years Aged Out No longer eligible b ased on patient's age to complete this topic Insurance AETNA [facility] Care Teams Quantitative Research Analyst Relationship Specialty Start Date End Date Delisa Turner APRN [address] [address] [place] [address] PCP - General Nurse Practitioner 03/16/23
[2025-10-02 18:06] LABS: Potassium 3.6 mmoL/L (3.5-5.1)
== END 2025-10-02 23:59 | disposition home or self-care (01) ==
LOC: LAB.DROPOF 17:10
PROVIDERS: PCP Nurse Practitioner Family; Visit Provider Nurse Practitioner Family
DX: E87.6 Hypokalemia (principal)
CPT/HCPCS: 84132

== ENCOUNTER 2025-10-13 13:00 | Outpatient (RCR) | payer MEDICAID, SELFPAY | END 2025-10-13 23:59 | disposition home or self-care (01) | LOC: OT 13:00 | PROVIDERS: Visit Provider Student in an Organized Health Care Education/Training Program | DX: M75.111 Incomplete rotator cuff tear or rupture of right shoulder, not specified as traumatic (principal) | CPT/HCPCS: 97032; 97140; 97165; 97530 ==